=== PATIENT | female | born 1940 | race Caucasian/White ===

== ENCOUNTER → 2016-08-30 | Outpatient (CLI) | payer MEDICARE, BC ==
[~2016-08-30] MED LIST: AMLO5TAB2 PO; ATOR80TA76 PO; BISA-72 PO; CLON0.3T PO; DULO30CA2 PO; FURO40TA5 PO; ISOS30TA6 PO; LOSA100T44 PO; MELA3TAB30; OMEP20CA10 PO; OXYC-426 PO; POTA20TA87 PO; PROC10TA PO; SERT100T12 PO; SOTA80TA PO; WARF2TAB6 PO; WARF3TAB29 PO
[2016-08-30 07:14] LABS: ALBUMIN 3.7 G/DL (3.5-5.0); ANION GAP 9 MEQ/L (5-15); BUN/CREATININE RATIO 14 RATIO (6-26); CALCIUM 8.8 MG/DL (8.4-10.2); CHLORIDE 102 MEQ/L (98-107); CO2 - CARBON DIOXIDE 35 MEQ/L (22-30); CREATININE 0.8 MG/DL (0.7-1.2); GLOMERULAR FILTRATION RATE 70; GLUCOSE 137 MG/DL (65-110); POTASSIUM 3.8 MEQ/L (3.6-5); SODIUM 146 MEQ/L (134-144)
[2016-08-30 08:04] LABS: PHOSPHORUS 3.3 MG/DL (2.5-4.5)
== END ==
LOC: LABNH.PM 00:48
PROVIDERS: ATTEND Internal Medicine Nephrology
DX: N18.3 Chronic kidney disease, stage 3 (moderate) (principal)
CPT/HCPCS: 36415; 80069; P9604

== ENCOUNTER → 2016-09-06 | Outpatient (CLI) | payer MEDICARE, BC ==
[2016-09-06 07:16] LABS: INR 2.22 (0.76-1.04); PROTHROMBIN TIME 24.2 SEC (9.31-12.49)
== END ==
LOC: LABNH.PM 01:53
PROVIDERS: ATTEND Family Medicine
DX: I48.91 Unspecified atrial fibrillation (principal)
CPT/HCPCS: 36415; 85610; P9604

== ENCOUNTER → 2016-10-04 | Outpatient (CLI) | payer MEDICARE, BC ==
[2016-10-04 07:52] LABS: INR 2.13 (0.76-1.04); PROTHROMBIN TIME 23.2 SEC (9.31-12.49)
== END ==
LOC: LABNH.PM 00:10
PROVIDERS: ATTEND Family Medicine
DX: I48.91 Unspecified atrial fibrillation (principal)
CPT/HCPCS: 36415; 85610; P9604

== ENCOUNTER 2017-01-12 12:14 | Inpatient (IN) ==
--- NOTE | 2017-01-12 15:21 | IRU History & Physical Report ---
HPI IRU Date: Chief complaint: I have trouble speaking and I'm weak on my left side HPI: The patient is interviewed and examined in her room on the inpatient rehabilitation unit with her son present. Vijaya is a very pleasant 76-year-old white female who took a fall at her apartment at [facility] on 01/07/2017. She fell on her left knee. A plain radiograph was obtained at that time which was reportedly negative. The next day on 01/08/2017 she was noted to have some slurred speech by the nursing staff there. However she denied any headache or any other localizing neurologic findings. On 01/10/2017 some 2 days later, the nurse passing medications noted that her slurred speech was getting worse. For this reason she was evaluated. Because of the duration of the time since onset of slurred speech (over 48 hours), it was determined not to give her TPA. She was evaluated and treated at [facility]. During that stay she underwent CT angiogram of the neck vessels as well as cerebral vessels. Also had CT of her head. She was noted to have bilateral basal ganglia lacunar infarcts of indeterminate age. No bleed was noted. No large distribution territory infarction was identified either. In addition, neck vessels failed to demonstrate evidence of stenosis and her cerebral vessels were likewise unremarkable. The patient had been on warfarin previously for her atrial fibrillation. Her INR was therapeutic at 2.7 at the time of admission. She did develop expressive dysphagia. In addition the patient describes weakness and some numbness in the left arm and left leg. She is not certain if it is related to the fall or whether it is a true neurologic weakness. Nevertheless, this is new since prior to the hospitalization. The patient does have history of COPD. She does not use any inhalers or bronchodilators. She does have chronic hypoxemia and uses oxygen at 3 L/m by nasal cannula all night. She is diagnosed with obstructive sleep apnea but states that the nasal CPAP was ineffective for her. She does not typically use oxygen during the daytime. However, at [place], her saturations were less than 90 % on room air and therefore she has been on oxygen when she is up and about. Likely she therefore has acute on chronic hypoxemic respiratory failure. Prior to the current event she was modified independent for eating, independent for grooming, minimal assistance for bathing, independent for dressing and modified independent for toileting. At the present time she is moderate assistance for bathing, maximum assistance for dressing and maximum assistance for toileting. She does use a walker at home. Cardiac avila she does have history of atrial fibrillation. It apparently is paroxysmal. She has had a history of cardiac catheterization about 4 years ago demonstrating what she describes as normal arteries but with evidence of some aortic valve stenosis apparently. It was not bad enough to have surgery she states. Does have history of sick sinus syndrome and permanent pacemaker placement. She does have history of colon cancer with resection of a portion of the colon. To her knowledge this is quiescent/in remission at present. I clarified with her that, in the event of a cardiac or respiratory arrest, she does not want any resuscitative efforts be undertaken. Her wishes will be complied with and therefore she will be made a no CODE BLUE. The following medical conditions are noted and require physician monitoring and treatment. 1. New CVA manifested by expressive dysphagia and subjective feeling of left- sided weakness. Workup has been negative for stenosis or any large territory infarction. 2. Acute on chronic hypoxemic respiratory failure with saturations less than 90 % on room air in [place]. 3. Reported congestive heart failure with uncertain ejection fraction. 4. COPD which is symptomatic. Has occasional cough and predominately shortness of breath and expiratory wheezes. 5. Left knee contusion with left leg edema. This is symptomatic and will impact her therapy. She has had negative venous Doppler on the left side. 6. Hypertension which has been under less control recently. The following therapies will be needed: 1. Physical therapy: for transfers and ambulation and stairs. 2. Occupational therapy: for ADL's and transfers. 3. Dietitian: To assist with management of diabetes. She is at risk for hypoglycemia in view of increased energy demands with therapy. 4. Medical management: for the above conditions. 5. 24 hour Rehabilitation Nursing to monitor and address the following: Neurologic changes, blood pressure, oxygen saturations, blood sugars. Review of Systems - Constitutional Constitutional: Present: fatigue, weakness. Absent: fever(s), headache(s) - EENMT Eyes: Absent: blurry vision, change in vision, diplopia - Cardiovascular Cardiovascular: Absent: chest pain, palpitations, syncope (she does complain of vertigo intermittently for some time even prior to the current episode) Rhythm: Present: regular rhythm Vascular: Present: unilateral swelling. Absent: pallor of an extermity - Respiratory Respiratory: Present: dyspnea, dyspnea on exertion, wheezing. Absent: cough, hemoptysis - Gastrointestinal Gastrointestinal: Present: dyspepsia. Absent: abdominal pain, constipation, diarrhea - Musculoskeletal Musculoskeletal: Present: arthralgias, muscle weakness - Neurological Neurological: Present: abnormal gait, abnormal speech, dizziness (has more vertigo than true lightheadedness.), focal weakness, numbness. Absent: abnormal movements, confusion, convulsions PFSH 1. Atrial fibrillation, possibly paroxysmal 2. Hypertension-benign essential 3. Reported history of congestive heart failure without known ejection fraction at present 4. 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 Anemia with hemoglobin around 10uncertain cause 6. Gastroesophageal reflux disease 7. Peripheral neuropathy 8. Depression 9. Sick sinus syndrome with placement of permanent pacemaker 10. Obstructive sleep apnea. Patient states CPAP is not effective for her and she uses 3 L of oxygen every night instead 11. Diabetes mellitus type 2 on oral agents 12. Dyslipidemia 13. History of colon cancer with resection and chemotherapy, apparently in remission Surgical History: 1. Placement of permanent pacemaker. 2. Cholecystectomy. 3. Partial colectomy for colon cancer. 4. Tonsillectomy and adenoidectomy. 5. Left heart catheterization apparently demonstrating aortic valve disease but reportedly negative coronary disease. 6. Central line placementapparently [place] Family History: Father of multiple medical problems which she is unable to enumerate. Mother of cancer which was "all over." - Social History Smoking status: Former smoker (started smoking at age 9. Stopped smoking age 38. 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) Does patient use chewing tobacco?: No Current residence: Assisted Living Medications Home Medications Medication Instructions Recorded Confirmed Type Atorvastatin Calcium 0.5 tab PO DAILY #0 09/01/14 History Bisacodyl [Dulcolax] 1 tab PO DAILY PRN #0 tab 09/01/14 History Omeprazole 1 tab PO DAILY #0 09/01/14 History Furosemide 1 tab PO DAILY #0 12/01/14 History Isosorbide Mononitrate [Isosorbide 1 tab PO DAILY #0 12/01/14 History Mononitrate ER] Losartan Potassium 1 tab PO DAILY #0 12/01/14 History Oxycodone HCl [Oxycontin] 1 tab PO BID #0 12/01/14 History Potassium Chloride 20 meq PO TID #0 tab 12/01/14 History Prochlorperazine Maleate 1 tab PO QID #0 12/01/14 History Sertraline HCl 1 tab PO DAILY #0 12/01/14 History Duloxetine [Cymbalta] 1 cap PO DAILY #0 cap 03/22/15 History Melatonin #0 03/22/15 History Sotalol HCl [Sotalol] 0.5 tab PO TID #0 tab 03/22/15 History Warfarin Sodium 2 mg PO 1700 #0 tab 03/22/15 History Warfarin Sodium [Coumadin] 3 mg PO 1700 #0 tab 03/22/15 History cloNIDine HCl [Clonidine HCl] 1 tab PO BID #0 tab 03/22/15 History Allergies Allergy/AdvReac Type Severity Reaction Status Date / Time codeine Allergy Unknown ITCH Verified 03/22/15 18:50 NSAIDS (Non-Steroidal Allergy Unknown Verified 03/22/15 18:50 Anti-Inflamma hydrocodone bit Allergy Unknown ITCH Uncoded 03/22/15 18:50 propoxyphene napsylate Allergy Unknown RASH Uncoded 03/22/15 18:50 zolpidem tartrate Allergy Unknown MENTAL Uncoded 03/22/15 18:50 STATUS CHANGES Results IRU - Labs Labs: Reviewed outside records including laboratory with A1c 8.1, CT of the head as well as CT angiogram of neck and cerebral vessels. Exam - Constitutional Present: no acute distress, obese, cooperative - Routine HEENT Exam Head: Present: normocephalic, atraumatic Eye: Present: EOMI, PERRL ENT: Present: mucous membranes moist - Routine Neck Exam Present: supple, full ROM - Routine Respiratory Exam Present: dyspnea, decreased breath sounds, wheezes (bilateral scattered expiratory wheezes). Absent: accessory muscle use, rales, crackles - Routine Cardiovascular Exam Present: RRR (reportedly has paroxysmal atrial fibrillation but currently rhythm sounds regular.), S1, S2, murmur (grade 2/6 systolic murmur second right interspace.) - Routine Abdominal Exam Present: soft, normoactive bowel sounds, non distended. Absent: rebound, guarding - Routine Extremities Exam Present: edema (left leg edematous and ecchymotic.) - Routine Skin Exam Present: intact, dry - Routine Neurological Exam Present: alert, oriented X3, CN II-XII intact, motor deficit (decreased inspector strength left hand compared to right. Decreased strength on flexion and extension left arm compared to right). Absent: altered mental status She does have intermittent episodes of expressive dysphagia. She would does have word finding problems. Speech does appear to be somewhat slurred. However she seems to be well oriented. - Routine Psychiatric Exam Present: normal affect, normal thought process, cooperative IRU A/P (1) CVA (cerebral vascular accident) Qualifiers: CVA mechanism: thrombosis Precerebral and cerebral artery: other cerebral artery Qualified Code(s): I63.39 - Cerebral infarction due to thrombosis of other cerebral artery Current visit: Yes Status: Acute Has expressive dysphasia and at least subjectively weakness on the left side of her body. Speech therapy will be involved to ensure safety with swallowing and improve speech and cognition. Physical therapy will be involved for transfers and ambulation. Occupational therapy will be involved for fine motor movement, dressing, grooming, toileting etc. She is on warfarin. (2) Episodic atrial fibrillation Current visit: Yes Status: Chronic Patient's INR has been elevated in [place]. We will hold warfarin until INR is drifting down to less than 3. Pharmacy consultation for management. (3) COPD (chronic obstructive pulmonary disease) with emphysema Qualifiers: Emphysema type: unspecified Qualified Code(s): J43.9 - Emphysema, unspecified Current visit: Yes Status: Chronic She was told she has COPD. She does have expiratory wheezes. Has a remote history of tobacco use but not since age 38. She is dyspneic with activity which will impact her therapy. (4) Benign essential hypertension Current visit: Yes Status: Chronic Blood pressure has been elevated recently. We will adjust medications as needed and consult hospitalist for management. (5) Acute respiratory failure with hypoxemia Current visit: Yes Status: Acute Appears to have chronic hypoxemia and use of oxygen at night. Does not use oxygen during the daytime. However she has manifested acute hypoxemia with saturations less than 90% on room air while in [place]. We will continue to monitor and supply additional oxygen if needed. (6) Diabetes mellitus type 2 in obese Current visit: Yes Status: Chronic Most recent A1c was 8.1 in [place]. She is not on insulin. (7) Contusion of knee, left Qualifiers: Encounter type: subsequent encounter Qualified Code(s): S80.02XD - Contusion of left knee, subsequent encounter Current visit: Yes Status: Acute Patient fell on 01/07/2017 resulting in contusion of left knee. Has edema on the left side. Plain radiograph was negative. DVT Prophylaxis: Coumadin Resuscitation Status: Do Not Resuscitate - Course Hospital Course: Camilo Rebolledo MD: - Interventions to Obtain Goals Goals Progress/Modifications: Our goal be to return her to her previous level of functioning which was essentially modified independent for most activities. She will require physical therapy, occupational therapy and speech therapy, the latter of which will be needed to improve her communication ability, swallowing safety and cognition.
--- NOTE | 2017-01-12 15:39 | IRU 24Hr Post Admit Eval ---
24 Hr Post Admission Physical - Relevant Changes Relevant Changes: No Reviewed: I have reviewed the patient's information and concur with the finding and results of the pre-admission screen. Certification: I certify the patient for rehabilitation. - Patient Condition (1) CVA (cerebral vascular accident) Status: Acute Qualifiers: CVA mechanism: thrombosis Precerebral and cerebral artery: other cerebral artery Qualified Code(s): I63.39 - Cerebral infarction due to thrombosis of other cerebral artery Code(s): I63.9 - Cerebral infarction, unspecified Classification: Present on IRF Admission, IRF Tx That Should Address Diagnosis, Diagnosis Requiring Medical Follow Up (2) Episodic atrial fibrillation Status: Chronic Code(s): I48.0 - Paroxysmal atrial fibrillation Classification: Present on IRF Admission, Diagnosis Requiring Medical Follow Up (3) COPD (chronic obstructive pulmonary disease) with emphysema Status: Chronic Qualifiers: Emphysema type: unspecified Qualified Code(s): J43.9 - Emphysema, unspecified Code(s): J43.9 - Emphysema, unspecified Classification: Present on IRF Admission, Other Contributing Factor (4) Benign essential hypertension Status: Chronic Code(s): I10 - Essential (primary) hypertension Classification: Present on IRF Admission, Diagnosis Requiring Medical Follow Up , Other Contributing Factor (5) Acute respiratory failure with hypoxemia Status: Acute Code(s): J96.01 - Acute respiratory failure with hypoxia Classification: Present on IRF Admission, Diagnosis Requiring Medical Follow Up (6) Diabetes mellitus type 2 in obese Status: Chronic Code(s): E11.69 - Type 2 diabetes mellitus with other specified complication; E66.9 - Obesity, unspecified Classification: Present on IRF Admission, Diagnosis Requiring Medical Follow Up (7) Contusion of knee, left Status: Acute Qualifiers: Encounter type: subsequent encounter Qualified Code(s): S80.02XD - Contusion of left knee, subsequent encounter Code(s): S80.02XA - Contusion of left knee, initial encounter Classification: Present on IRF Admission, IRF Tx That Should Address Diagnosis, Other Contributing Factor - Prior Functional Status Lives With: Spouse Residence Type: Assisted Living Assitive Devices: Front Wheeled Walker Prior Functional Status: Depend. at home or school - Current Functional Status Failed Alternative Therapy: Arrived from Acute Care Patient Requirements: The patient requires oversight by rehabilitation physician to manage their rehabilitation treatment plan and multidisciplinary approach to care that can only be provided in an IRF and requires a multidisciplinary approach to care, provided by professional PTs, OTs, STs, dieticians, RTs, rehabilitation nurses and is not available in lesser levels of care. Limitiations Req: Mobility Impairment, ADL Impairment, Respiratory Impairment Speech Therapy Minutes: 30 Physical Therapy Minutes: 90 Occupational Therapy Minutes: 90 Therapy: The patient is to receive therapy at least [address] Treatment Plan: Articulation Therapy, Apraxia Therapy ST Treatment Plan Frequency: Three Times Per Week - Complications/Comorbidities Barriers to Discharge: Weakness, Balance, Medical Limitation - Plan to Avoid Complications Plan to Avoid Complications: The patient cannot receive this care in a lesser intensive setting such as Penitentiary or Outpatient Therapy due to the patient requiring the following : Recent CVA requiring close nursing monitoring for recurrence of new neurologic symptoms, oxygen monitoring in view of recent acute respiratory failure, medical management of elevated INR, medical management of COPD.
--- NOTE | 2017-01-12 15:42 | IRU Plan of Care ---
[facility] Overall Plan of Care - Date Date: 01/12/17 - Patient Impairments (1) CVA (cerebral vascular accident) Qualifiers: CVA mechanism: thrombosis Precerebral and cerebral artery: other cerebral artery Qualified Code(s): I63.39 - Cerebral infarction due to thrombosis of other cerebral artery Code(s): I63.9 - Cerebral infarction, unspecified Status: Acute Classification: Present on IRF Admission, IRF Tx That Should Address Diagnosis, Diagnosis Requiring Medical Follow Up (2) Episodic atrial fibrillation Code(s): I48.0 - Paroxysmal atrial fibrillation Status: Chronic Classification: Present on IRF Admission, Diagnosis Requiring Medical Follow Up (3) COPD (chronic obstructive pulmonary disease) with emphysema Qualifiers: Emphysema type: unspecified Qualified Code(s): J43.9 - Emphysema, unspecified Code(s): J43.9 - Emphysema, unspecified Status: Chronic Classification: Present on IRF Admission, Other Contributing Factor (4) Benign essential hypertension Code(s): I10 - Essential (primary) hypertension Status: Chronic Classification: Present on IRF Admission, Diagnosis Requiring Medical Follow Up , Other Contributing Factor (5) Acute respiratory failure with hypoxemia Code(s): J96.01 - Acute respiratory failure with hypoxia Status: Acute Classification: Present on IRF Admission, Diagnosis Requiring Medical Follow Up (6) Diabetes mellitus type 2 in obese Code(s): E11.69 - Type 2 diabetes mellitus with other specified complication; E66.9 - Obesity, unspecified Status: Chronic Classification: Present on IRF Admission, Diagnosis Requiring Medical Follow Up (7) Contusion of knee, left Qualifiers: Encounter type: subsequent encounter Qualified Code(s): S80.02XD - Contusion of left knee, subsequent encounter Code(s): S80.02XA - Contusion of left knee, initial encounter Status: Acute Classification: Present on IRF Admission, IRF Tx That Should Address Diagnosis, Other Contributing Factor - Relevant Changes Relevant Changes: No Reviewed: I have reviewed the patient's information and concur with the finding and results of the pre-admission screen. Certification: I certify the patient for rehabilitation. - Medical Prognosis Medical Prognosis: Good - Anticipated Interventions Anticipated Interventions: The patient requires inpatient IRF care for PT, OT, and/or ST for residuals remaining from new CVA, acute hypoxemic respiratory failure, COPD resulting in muscular weakness and strength deficits. - Current Functional Status Failed Alternative Therapy: Arrived from Acute Care Patient Requires: The patient requires oversight by rehabilitation physician to manage their rehabilitation treatment plan and multidisciplinary approach to care that can only be provided in an IRF and requires a multidisciplinary approach to care, provided by professional PTs, OTs, STs, dieticians, RTs, rehabilitation nurses and is not available in lesser levels of care. Speech-Language Pathology Minutes: 30 Physical Therapy Minutes: 90 Occupational Therapy Minutes: 90 Therapy: The patient is to receive therapy at least [address] Treatment Plan: Articulation Therapy, Apraxia Therapy ST Treatment Plan Frequency: Three Times Per Week - Anticipated LOS/Outcomes Anticipated Functional Outcome: Patient will be able to return to her assisted living environment with modified independent functioning including grooming, toileting, bathing. She will be able to ambulate with a walker with independent functioning. Anticipated Length of Stay: 7 Anticipated DC Destination: Other (assisted living) Home Safety Plan: The patient will be provided with the development of a Home Safety Plan for return to a home or home-like environment and and to ensure safety post discharge. - Plan to Avoid Complications Barriers to Attaining Goals: Weakness, Endurance, Medical Limitation Plan to Avoid Complications: The patient cannot receive this care in a lesser intensive setting such as Longterm or Outpatient Therapy due to the patient requiring the following : Need for 24 rehabilitation nursing monitoring of neurologic status, medical management of hypertension, COPD, adjustment of Coumadin in view of elevated INR at present as well as monitoring oxygen saturations. .
[2017-01-12] MEDS ORDERED: ONDANSETRON 4 MG TABLET PO PRN (16:06)
[2017-01-12] MEDS ORDERED: MECLIZINE 12.5 MG TABLET PO PRN (16:06)
[2017-01-12] MEDS ORDERED: WARFARIN 6 MG TABLET PO SCH (16:15)
[2017-01-12] MEDS ORDERED: WARFARIN 7.5 MG TABLET PO SCH (16:30)
[2017-01-12 16:38] VITALS: BMI 37.5
[2017-01-12] MEDS: ISOSORBIDE MONONITRATE ER 30 MG TABLET PO SCH (18:03)
[2017-01-12] MEDS: TRIHEXYPHENIDYL 2 MG TABLET PO SCH (21:00)
[2017-01-12] MEDS: GUAIFENESIN LA 600 MG TABLET PO SCH (21:00)
[2017-01-12] MEDS: SOTALOL 80 MG TABLET PO SCH (21:03)
[2017-01-12] MEDS: PRIMIDONE 50 MG TABLET PO SCH (21:06)
[2017-01-12] MEDS: MELATONIN 1 MG TABLET PO SCH (21:38)
[2017-01-12] MEDS: MIRTAZAPINE 15 MG TABLET PO SCH (21:39)
[2017-01-12] MEDS: FAMOTIDINE 20 MG TABLET PO SCH (21:39)
[2017-01-12] MEDS: ATORVASTATIN 20 MG TABLET PO SCH (21:40)
[2017-01-12] MEDS: TRAZODONE 50 MG TABLET PO SCH (21:40)
[2017-01-12] MEDS: ACETAMINOPHEN 325 MG TABLET PO PRN (22:06)
[2017-01-13] MEDS: ISOSORBIDE MONONITRATE ER 30 MG TABLET PO SCH ×2 (06:11→17:23)
[2017-01-13] MEDS: SOTALOL 80 MG TABLET PO SCH ×3 (08:35→20:27)
[2017-01-13] MEDS: LOSARTAN 100 MG TABLET PO SCH (08:36)
[2017-01-13] MEDS: PRIMIDONE 50 MG TABLET PO SCH ×3 (08:37→20:26)
[2017-01-13] MEDS: FUROSEMIDE 80 MG TABLET PO SCH (08:39)
--- NOTE | 2017-01-13 09:37 | Consult Note ---
<Georgette Ayala - Last Filed: 01/13/17 16:30> Consult Information - Data of Consult Patient: new to practice Consult date: 01/13/17 Requesting Physician: Camilo Rebolledo MD Primary Care Provider: Laney Guillory MD Family Provider: Laney Guillory MD - Consult Narrative Reason for consult: Ongoing medical management of chronic health problems History of present illness: Vijaya is a 76-year-old white female admitted to IRU following a CVA. She fell on her left knee at her apartment at [facility] on . She had an x-ray at that time which was reported negative. The following day , she was noted to have some slurred speech by the nursing staff. On 01/10/17, the nurses felt her speech was getting worse so she was taken to [facility] for evaluation. During her stay she had CT head, CTA of the neck and cerebral vessels. She was found to have bilateral basal ganglia lacunar infarcts of indeterminate age. No bleed. Otherwise, studies were negative. Patient is on warfarin for paroxysmal atrial fibrillation. Her INR was therapeutic at 2.7 at the time of admission to [facility]. She developed some expressive dysphasia and describes weakness and numbness in the left arm and left leg. In addition to paroxysmal atrial fibrillation, patient does have a history of sick sinus syndrome and has a permanent pacemaker. She has a history of COPD but does not use any inhalers other than PRN albuterol. States it is not unusual for her to have wheezing. She has chronic hypoxemia and uses oxygen at 3 L by nasal cannula at night. She's had diagnosis of obstructive sleep apnea but felt CPAP was ineffective. Although she usually does not use oxygen during the day, while at [facility], her saturations were less than 90% on room air therefore she was on oxygen. Her only complaint at this time as the left knee pain and swelling. Although, she does report that it is improving. Pain is improved with Tylenol. PFSH Recent CVA with expressive dysphasia and subjective feeling of left-sided weakness. Acute on chronic hypoxemic respiratory failure Paroxysmal atrial fibrillation-anticoagulant therapy Ascending aortic aneurysm-stable Final stenosis CHF COPD-previous smoker Essential tremor Recent left knee contusion with left leg edema Hypertension Chronic anemia, iron deficiency GERD Diabetes mellitus Type II Sick sinus syndrome with placement of permanent pacemaker Obstructive sleep apnea-CPAP not effective per patient. Uses 3 L of oxygen at night Hyperlipidemia History of colon cancer with resection and chemotherapy, no evidence of recurrence Previous narcotic drug use Surgical History: 1. Placement of permanent pacemaker-2006 (Dr. Marco Antonio Hidalgo) . 2. Cholecystectomy. 3. Partial colectomy for adenocarcinoma of ascending colon-2011. 4. Tonsillectomy and adenoidectomy. 5. Left heart catheterization apparently demonstrating aortic valve disease but reportedly negative coronary disease. 6. Central line placementapparently Port-A-Cath. 7. Hysterectomy ( ovaries not removed) and appendectomy at age 36. 8. Cervical fusion at age 43. 9. Posterior repair with enterocele repair 1989. 10. Cataract surgery and lens implants bilaterally-2005. 11. Excision of suspicious calcification on right breast 1999 (Dr. Townsend) Family History: Father - in his 70s of heart problems Mother - age 84 of adenocarcinoma which had metastasized, CABG and carotid artery surgery, developed diabetes after age 80. Sister-cardiac arrhythmia-history of ablation, hypertension Maternal grandfather- at age 88 of heart attack and diabetes in later years. Maternal grandmother of ruptured aortic aneurysm in her early 70s. 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 Laney Guillory Driver Medic-Dr. Jesus Willson Oncologist-Dr. Chapman Neurologist-Dr. Richards Video Poker Floorman-Dr Frye(?) - retired - last saw him 5 months ago. States she needs to establish with new junior programmer. Review of Systems Comprehensive ROS: completed and no additional positive findings except those as stated - Constitutional Constitutional: Present: headache(s) (bilateral orthodoxy area. (Not unusual for patient.)) - Cardiovascular Vascular: Present: unilateral swelling (left knee and lower leg) - Respiratory Respiratory: Present: wheezing - Musculoskeletal Musculoskeletal: Present: joint swelling (left knee pain and swelling from recent fall.) - Integumentary/Breasts Integumentary: Present: other (bruising to left knee and lower extremity) - Neurological Neurological: Present: abnormal speech, weakness Medications Home Medications Medication Instructions Recorded Confirmed Type Bisacodyl [Dulcolax] 1 tab PO DAILY #0 tab 09/01/14 01/12/17 History Furosemide 1 tab PO DAILY #0 12/01/14 01/12/17 History Isosorbide Mononitrate [Isosorbide 0.5 tab PO BID #0 12/01/14 01/12/17 History Mononitrate ER] Losartan Potassium 1 tab PO DAILY #0 12/01/14 01/12/17 History Potassium Chloride 20 meq PO QID #0 tab 12/01/14 01/12/17 History Sertraline HCl 1 tab PO DAILY #0 12/01/14 01/12/17 History Melatonin 6 mg PO DAILY #0 03/22/15 01/12/17 History Sotalol HCl [Sotalol] 0.5 tab PO TID #0 tab 03/22/15 01/12/17 History Warfarin Sodium 6 mg PO Q2D #0 tab 03/22/15 01/12/17 History Warfarin Sodium [Coumadin] 3 mg PO Q2D #0 tab 03/22/15 01/12/17 History cloNIDine HCl [Clonidine HCl] 1 tab PO TID #0 tab 03/22/15 01/12/17 History Acetaminophen 650 mg PO Q4HPRN PRN 01/12/17 01/12/17 History Acetaminophen 650 mg PO TID 01/12/17 01/12/17 History Albuterol Neb (0.083%) [Proventil 2.5 mg AEROSOL Q2HPRN PRN 01/12/17 01/12/17 History Neb (0.083%)] Albuterol Sulfate [Proair Hfa] 2 puff INH Q4H PRN 01/12/17 01/12/17 History Atorvastatin Calcium 20 mg PO DAILY 01/12/17 01/12/17 History Benzonatate 200 mg PO Q6HPRN PRN 01/12/17 01/12/17 History Famotidine [Pepcid] 20 mg PO DAILY 01/12/17 01/12/17 History Ferrous Sulfate 325 mg PO DAILY 01/12/17 01/12/17 History Fexofenadine HCl 180 mg PO DAILY 01/12/17 01/12/17 History Furosemide [Lasix] 80 mg PO DAILY 01/12/17 01/12/17 History Gabapentin [Neurontin] 200 mg PO DAILY 01/12/17 01/12/17 History Guaifenesin LA [Mucinex LA] 600 mg PO [id number] PRN 01/12/17 01/12/17 History Meclizine [Antivert] 1 tab PO Q6HPRN PRN 01/12/17 01/12/17 History Metoprolol Succinate (Xl) [Toprol 50 mg PO DAILY 01/12/17 01/12/17 History Xl] Miconazole Nitrate [Miconazorb AF] 1 applic TP BID PRN 01/12/17 01/12/17 History Mirtazapine 7.5 mg PO HS 01/12/17 01/12/17 History NIFEdipine [Nifedipine ER] 90 mg PO DAILY 01/12/17 01/12/17 History Ondansetron Tab [Zofran Po] 4 mg PO DAILY 01/12/17 01/12/17 History Ondansetron Tab [Zofran Po] 4 mg PO Q4HR PRN 01/12/17 01/12/17 History Polyethylene Glycol 3350 [Miralax] 17 gm PO DAILY 01/12/17 01/12/17 History Primidone [Mysoline] 25 mg PO TID 01/12/17 01/12/17 History Trazodone [Desyrel] 50 mg PO HS 01/12/17 01/12/17 History Trihexyphenidyl [Artane] 0.5 tab PO BID 01/12/17 01/12/17 History Allergies Allergy/AdvReac Type Severity Reaction Status Date / Time codeine Allergy Unknown ITCH Verified 01/12/17 19:47 NSAIDS (Non-Steroidal Allergy Unknown Verified 01/12/17 19:47 Anti-Inflamma hydrocodone [From Lortab] AdvReac Intermediate Blister Verified 01/12/17 19:47 acetaminophen AdvReac Mild Itching Verified 01/12/17 19:47 [From Darvocet-N] propoxyphene AdvReac Mild Itching Verified 01/12/17 19:47 [From Darvocet-N] hydrocodone bit Allergy Unknown ITCH Uncoded 03/22/15 18:50 propoxyphene napsylate Allergy Unknown RASH Uncoded 03/22/15 18:50 zolpidem tartrate Allergy Unknown MENTAL Uncoded 03/22/15 18:50 STATUS CHANGES Exam Vital Signs: Temperature 98.1 F 01/13/17 08:22 Pulse Rate 89 01/13/17 08:35 Respiratory Rate 24 01/13/17 08:22 Blood Pressure 163/89 H 01/13/17 08:22 Pulse Oximetry 92 01/13/17 08:22 Oxygen Delivery Method Room Air Oxygen Flow Rate 3 Height: 1.68 m Weight: 105.6 kg Body Mass Index: 37.5 - Constitutional Present: no acute distress, well nourished, well developed - Routine HEENT Exam Head: Present: normocephalic, atraumatic Eye: Present: EOMI, PERRL ENT: Present: mucous membranes moist, oropharynx clear - Routine Neck Exam Present: supple, full ROM - Routine Respiratory Exam Present: CTA bilaterally. Absent: wheezes - Routine Cardiovascular Exam Present: RRR, S1, S2, murmur (grade 1-2) - Routine Abdominal Exam Present: soft, normoactive bowel sounds, non distended. Absent: tenderness - Routine Extremities Exam Present: edema (moderate swelling of the left knee and lower leg), no edema (to right lower extremity), normal capillary refill. Absent: non tender ( tenderness to the left knee and lower leg), full ROM (decreased range of motion left leg and knee due to pain) - Routine Skin Exam Present: dry, warm, ecchymosis (to left knee and lower leg) - Routine Neurological Exam Present: alert, oriented X3, CN II-XII intact, moving all extremities. Absent: pronator drift, altered mental status, normal speech Carbide Tool Maker strength on the left slightly weaker than right. Unable to accurately test strength to left leg due to pain. Strength equal bilateral upper extremities. She has a slight facial droop on the right noted especially to the mouth. She states she has always had this. - Detailed Neurological Exam Speech: Present: slurred - Routine Psychiatric Exam Present: normal affect, normal thought process, cooperative Results - Labs CBC & Chem 7: 01/13/17 04:44 01/13/17 04:44 - Imaging and Cardiology CT scan - head Additional comments: Studies performed at [facility]: 01/10-01/11/17 CT head, CTA of the neck and cerebral vessels. She was found to have bilateral basal ganglia lacunar infarcts of indeterminate age. No bleed. Otherwise, studies were negative. Left lower extremity venous Doppler-negative Chest [id number], otherwise negative. A1C 8.2 TSH - nl Echo - left ventricular systolic function is 55-60% 1. Preserved left ventricular size and systolic function. 2. Aortic root dilated. 3. Moderate mitral insufficiency. 4. Moderate mitral regurgitation. 5. Mild pulmonary hypertension. Assessment and Plan (1) CVA (cerebral vascular accident) Current visit: Yes Status: Acute Assessment and Plan: Impression: Recent CVA with expressive dysphasia and subjective feeling of left-sided weakness. Acute on chronic hypoxemic respiratory failure CHF Paroxysmal atrial fibrillation-anticoagulant therapyF COPD Ascending aortic aneurysm-stable Spinal stenosis Essential tremor Recent left knee contusion with left leg edema Hypertension Chronic anemia, iron deficiency GERD Diabetes mellitus Type II Sick sinus syndrome with placement of permanent pacemaker Obstructive sleep apnea-CPAP not effective per patient. Uses 3 L of oxygen at night Hyperlipidemia History of colon cancer with resection and chemotherapy, no evidence of recurrence History of narcotic drug use Plan: Agree with IRU admission for strengthening, ambulation and ADLs. As well as monitoring of neurologic changes, blood pressure, oxygen saturations, and blood sugars. Pharmacy will monitor her warfarin/INR. Expect the left knee should continue to improve with time. Monitor O2 sats, oxygen as needed to keep sats greater than 90%. She sleeps with 3 L. Duoneb treatments when necessary. Monitor blood pressures. Cardiac medications include clonidine, nifedipine, losartan, furosemide and potassium, sotalol, metoprolol, Imdur, and Lipitor. Confirmed patient's home medications with her snf [facility]. Recent A1c was 8.2, blood sugars ranging upper 100s to over 200 since admission. Start sliding scale insulin protocol and initiate metformin 500 mg daily. Monitor kidney function with initiation of metformin. 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 Poon, or have her establish as an OP after dismissal. Hospitalist team will continue to manage patient throughout her stay. Upon dismissal, patient's care will return to her PCP, Dr. Guillory. Hospital Course Summary Disclaimer: The visit summary below is not to be considered part of the above Progress Note. Hospital Course: 01/13/17 - Hospitalist Consult Agree with IRU admission for strengthening, ambulation and ADLs. As well as monitoring of neurologic changes, blood pressure, oxygen saturations, and blood sugars. Pharmacy will monitor her warfarin/INR. Expect the left knee should continue to improve with time. Monitor O2 sats, oxygen as needed to keep sats greater than 90%. She sleeps with 3 L. Duoneb treatments when necessary. Monitor blood pressures. Cardiac medications include clonidine, nifedipine, losartan, furosemide and potassium, sotalol, metoprolol, Imdur, and Lipitor. Confirmed patient's home medications with her snf [facility]. Recent A1c was 8.2, blood sugars ranging upper 100s to over 200 since admission. Start sliding scale insulin protocol and initiate metformin 500 mg daily. Monitor kidney function with initiation of metformin. 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 Poon, or have her establish as an OP after dismissal. Hospitalist team will continue to manage patient throughout her stay. Upon dismissal, patient's care will return to her PCP, Dr. Guillory. Sepsis Assessment - Evaluation Sepsis screening result: No Definite Risk <RoscoeJennifer L - Last Filed: 01/13/17 20:10> Consult Information - Data of Consult Requesting Physician: Camilo Rebolledo MD Primary Care Provider: Laney Guillory MD Family Provider: Laney Guillory MD [facility] Patient Stated Medical History Cerebrovascular Accident Yes: 2016 Syncope Yes Cataracts Yes: cataract sx Dental Problems Yes: wears dentures Cardiac Arrhythmia Yes Hypertension Yes Rheumatic Fever Yes Asthma Yes Bronchitis Yes Chronic Obstructive Pulmonary Yes Disease (COPD) Sleep Apnea Yes Diabetes Mellitus Type 2 Yes Constipation Yes Gastroesophageal Reflux Yes Disease Hiatal Hernia Yes Other GI Yes: Colon CA Hx Incontinence Yes Shingles Yes: 2016 Chemotherapy Yes Post Menopausal Yes Exam Vital Signs: Temperature 98.0 F 01/13/17 16:33 Pulse Rate 86 01/13/17 17:17 Respiratory Rate 24 01/13/17 16:33 Blood Pressure 136/78 01/13/17 17:17 Pulse Oximetry 93 01/13/17 16:33 Oxygen Delivery Method Room Air Oxygen Flow Rate 3 Height: 1.68 m Weight: 105.6 kg Results - Labs CBC & Chem 7: 01/13/17 04:44 01/13/17 04:44 Assessment and Plan (1) CVA (cerebral vascular accident) Current visit: Yes Status: Acute Assessment and Plan: 01/13/2017-I reviewed this chart, the patient history, and the AUTOMOTIVE PAINTER HELPER's/PA's documented findings as above. We discussed and formulated the assessment and plan as above with the additions below. I've seen and examined the patient independently.-Roscoe The patient was seen in her room this evening accompanied by her and daughter. She states she is doing better than this morning. She states that this morning she had nausea but that has resolved now. She states she has some slurred speech and left facial droop that has been present since her stroke. She states she choked on some fish and cooked carrots this evening. She states her swallow was evaluated by speech therapist while she was at [facility] and she was told her swallowing was okay. She is on a regular consistency diet. She states she choked a couple of times while eating at [facility] also. She states she has left knee and leg pain after a fall approximately one week ago. She has extensive bruising and swelling from the knee down but she and her daughter both state that it looks better. Patient denies any other pain such as chest pain, headache or abdominal pain. She denies any difficulties breathing. The patient states that she did see Dr. Willson for possible kidney disease, but per her report he told her her kidneys were fine. On exam she is alert and oriented 3 and in no acute distress. HEENT reveals sclerae to be anicteric, oropharynx is moist. Neck is supple. Chest is clear to auscultation. Cardiovascular reveals a regular rate and rhythm. Abdomen is soft and nontender with mild distention. Bowel sounds are normoactive. Right leg is without edema. Left leg reveals trace to +1 edema and bruising from the knee down. The patient states she had x-rays that ruled out fracture and venous Dopplers that ruled out DVT of the left leg. Skin is warm and dry and without rashes Agree with impression and plan above. We'll DC metformin however because the patient states that this caused hypoglycemia in the past. Instead, we'll monitor Accu-Cheks and give when necessary insulin. If she is having frequent hyperglycemia, we may need to start routine medication. Regarding dysphagia with choking today we'll start a pured diet with nectar thick liquids and consult speech therapy to see her tomorrow. Currently her lungs are clear and she denies shortness of breath and is not having a cough. Monitor for aspiration pneumonitis/pneumonia. Recheck basic metabolic profile tomorrow. Hospital Course Summary Disclaimer: The visit summary below is not to be considered part of the above Progress Note.
[2017-01-13] MEDS: FEXOFENADINE 180 MG TABLET PO SCH (09:49)
[2017-01-13] MEDS: TRIHEXYPHENIDYL 2 MG TABLET PO SCH ×2 (09:49→20:29)
[2017-01-13] MEDS: ACETAMINOPHEN 325 MG TABLET PO PRN (09:49)
[2017-01-13] MEDS: FERROUS SULFATE 324 MG TABLET PO SCH (09:50)
[2017-01-13] MEDS: SERTRALINE 100 MG TABLET PO SCH (09:51)
[2017-01-13] MEDS: GABAPENTIN 100 MG CAPSULE PO SCH (09:51)
[2017-01-13] MEDS: POLYETHYL GLYCOL 3350 17gm PACKET PO SCH (09:51)
[2017-01-13] MEDS: Bisacodyl EC TAB 5 MG TABLET PO SCH (09:51)
[2017-01-13] MEDS: GUAIFENESIN LA 600 MG TABLET PO SCH ×2 (09:52→20:26)
[2017-01-13] MEDS ORDERED: ALBUTEROL/IPRATROPIUM 2.5mg-0.5mg/3ml NEB AEROSOL PRN (11:05)
[2017-01-13] MEDS: MICONAZOLE 2% POWDER 45gm TP PRN (11:09)
[2017-01-13] MEDS ORDERED: METFORMIN 500 MG TABLET PO SCH (12:54)
--- NOTE | 2017-01-13 13:08 | Pharmacy Consult ---
Pharmacy Consult-Warfarin - Laboratory Information 01/13/17 04:44 INR 3.14 H ALDO is a 76yo F admitted to IRU for PT/OT to ADL's secondary to recent CVA. Comorbidities include COPD, HTN, CHF Reported had been on home warfarin of 3mg alternating with 6mg dose, but date of last taken is unkown. Warfarin was held on admission. Will HOLD today's dose as well with the INR = 3.14 Target INR range = 2-3 Recheck INR in am. thank you
[2017-01-13] MEDS: INSULIN ASPART 100unit/ml INJECTION SQ PRN ×2 (13:32→21:34)
[2017-01-13] MEDS: FUROSEMIDE 40 MG TABLET PO SCH (16:31)
[2017-01-13] MEDS ORDERED: GLUCOSE ORAL GEL 40% 37.5gm PO PRN (20:02)
[2017-01-13] MEDS ORDERED: DEXTROSE 50% SYRINGE 50ml (1 AMP) IVP PRN (20:02)
[2017-01-13] MEDS: FAMOTIDINE 20 MG TABLET PO SCH (21:22)
[2017-01-13] MEDS: MELATONIN 1 MG TABLET PO SCH (21:22)
[2017-01-13] MEDS: TRAZODONE 50 MG TABLET PO SCH (21:22)
[2017-01-13] MEDS: MIRTAZAPINE 15 MG TABLET PO SCH (21:23)
[2017-01-13] MEDS: ATORVASTATIN 20 MG TABLET PO SCH (21:23)
[2017-01-14] MEDS: INSULIN ASPART 100unit/ml INJECTION SQ PRN ×4 (06:08→21:05)
[2017-01-14] MEDS: ISOSORBIDE MONONITRATE ER 30 MG TABLET PO SCH ×2 (06:08→17:47)
--- NOTE | 2017-01-14 06:44 | Pharmacy Consult ---
Pharmacy Consult-Warfarin - Laboratory Information 01/13/17 01/14/17 04:44 04:40 INR 3.14 H 2.19 H ALDO is a 76yo F admitted to IRU for PT/OT to ADL's secondary to recent CVA. Comorbidities include COPD, HTN, CHF Date INR Dose 01/13 3.14 No Dose Given 01/14 2.19 Plan 3 mg The pharmacy will continue to monitor the INR's and adjust the Warfarin as needed. Thanks for the Protocol, Jordy Cedeno RP
[2017-01-14] MEDS: PROMETHAZINE 25 MG TABLET PO PRN (08:51)
[2017-01-14] MEDS: FERROUS SULFATE 324 MG TABLET PO SCH (08:53)
[2017-01-14] MEDS: SOTALOL 80 MG TABLET PO SCH ×3 (08:54→20:23)
[2017-01-14] MEDS: TRIHEXYPHENIDYL 2 MG TABLET PO SCH ×2 (08:54→20:24)
[2017-01-14] MEDS: FEXOFENADINE 180 MG TABLET PO SCH (08:54)
[2017-01-14] MEDS: FUROSEMIDE 80 MG TABLET PO SCH (08:56)
[2017-01-14] MEDS: Bisacodyl EC TAB 5 MG TABLET PO SCH (08:56)
[2017-01-14] MEDS: PRIMIDONE 50 MG TABLET PO SCH ×3 (08:56→20:31)
[2017-01-14] MEDS: LOSARTAN 100 MG TABLET PO SCH (08:56)
[2017-01-14] MEDS: GUAIFENESIN LA 600 MG TABLET PO SCH ×2 (08:57→21:06)
[2017-01-14] MEDS: SERTRALINE 100 MG TABLET PO SCH (08:57)
[2017-01-14] MEDS: GABAPENTIN 100 MG CAPSULE PO SCH (08:57)
[2017-01-14] MEDS: POLYETHYL GLYCOL 3350 17gm PACKET PO SCH (08:58)
[2017-01-14] MEDS ORDERED: FALL RISK - PHARMACY CONSULT MC PRN (10:17)
[2017-01-14] MEDS ORDERED: WARFARIN 3 MG TABLET PO SCH (12:00)
[2017-01-14] MEDS: FUROSEMIDE 40 MG TABLET PO SCH (16:06)
[2017-01-14] MEDS: TRAZODONE 50 MG TABLET PO SCH (21:05)
[2017-01-14] MEDS: ATORVASTATIN 20 MG TABLET PO SCH (21:05)
[2017-01-14] MEDS: MELATONIN 1 MG TABLET PO SCH (21:06)
[2017-01-14] MEDS: MIRTAZAPINE 15 MG TABLET PO SCH (21:08)
[2017-01-14] MEDS: FAMOTIDINE 20 MG TABLET PO SCH (21:08)
[2017-01-15] MEDS: ISOSORBIDE MONONITRATE ER 30 MG TABLET PO SCH ×2 (06:48→17:48)
--- NOTE | 2017-01-15 07:57 | Pharmacy Consult ---
Pharmacy Consult-Warfarin - Laboratory Information 01/13/17 01/14/17 01/15/17 04:44 04:40 07:09 INR 3.14 H 2.19 H 1.99 H - Consult Information Will give warfarin 4mg po today. Thank you.
[2017-01-15] MEDS: TRIHEXYPHENIDYL 2 MG TABLET PO SCH ×2 (09:35→21:15)
[2017-01-15] MEDS: FEXOFENADINE 180 MG TABLET PO SCH (09:35)
[2017-01-15] MEDS: FERROUS SULFATE 324 MG TABLET PO SCH (09:35)
[2017-01-15] MEDS: LOSARTAN 100 MG TABLET PO SCH (09:36)
[2017-01-15] MEDS: SOTALOL 80 MG TABLET PO SCH ×3 (09:36→21:13)
[2017-01-15] MEDS: Bisacodyl EC TAB 5 MG TABLET PO SCH (09:36)
[2017-01-15] MEDS: PRIMIDONE 50 MG TABLET PO SCH ×3 (09:37→21:16)
[2017-01-15] MEDS: FUROSEMIDE 80 MG TABLET PO SCH (09:37)
[2017-01-15] MEDS: POLYETHYL GLYCOL 3350 17gm PACKET PO SCH (09:37)
[2017-01-15] MEDS: GABAPENTIN 100 MG CAPSULE PO SCH (09:38)
[2017-01-15] MEDS: SERTRALINE 100 MG TABLET PO SCH (09:38)
[2017-01-15] MEDS: GUAIFENESIN LA 600 MG TABLET PO SCH ×2 (09:54→21:11)
[2017-01-15] MEDS: MICONAZOLE 2% POWDER 45gm TP PRN (11:44)
[2017-01-15] MEDS ORDERED: WARFARIN 4 MG TABLET PO SCH (12:00)
[2017-01-15] MEDS: INSULIN ASPART 100unit/ml INJECTION SQ PRN ×3 (12:53→22:05)
--- NOTE | 2017-01-15 13:34 | Progress Note ---
Subjective: Vijaya was seen after lunch. She complains of "feeling like a balloon all over" . She also doesn't care for the pureed diet and would like to have the consistency of her food changed, if possible. She denies feeling short of breath ; no conversational dyspnea. Objective Vital signs: Temperature 98.6 F 01/15/17 07:29 Pulse Rate 73 01/15/17 09:36 Respiratory Rate 20 01/15/17 07:29 Blood Pressure 150/79 H 01/15/17 07:29 Pulse Oximetry 94 01/15/17 07:29 Oxygen Delivery Method Nasal Cannula Oxygen Flow Rate 3 Fraction of Inspired Oxygen 90 Body Mass Index: 37.5 - Constitutional Present: no acute distress, well nourished, well developed - Routine HEENT Exam ENT: Present: mucous membranes moist, oropharynx clear - Routine Respiratory Exam Present: decreased breath sounds - Routine Cardiovascular Exam Present: S1, S2 - Routine Abdominal Exam Present: soft, normoactive bowel sounds, non distended, non tender - Routine Extremities Exam Present: edema - Routine Musculoskeletal Exam Musculoskeletal: Present: moving extremities well - Routine Skin Exam Present: intact, dry, warm - Routine Neurological Exam Present: alert, oriented X3, CN II-XII intact left vp & general counsel slightly weaker than right - Routine Psychiatric Exam Present: normal affect, normal thought process, cooperative Results - Labs CBC & Chem 7: 01/13/17 04:44 01/14/17 04:40 Assessment and Plan (1) CVA (cerebral vascular accident) Current visit: Yes Status: Acute DVT Prophylaxis: Coumadin Resuscitation Status: Do Not Resuscitate Assessment and Plan: Impression: Recent CVA with expressive dysphasia and subjective feeling of left-sided weakness. Acute on chronic hypoxemic respiratory failure Hypokalemia Recent left knee contusion with left leg edema CHF, unknown EF Paroxysmal atrial fibrillation-anticoagulant therapy Sick sinus syndrome with placement of permanent pacemaker Hypertension Hyperlipidemia COPD Obstructive sleep apnea-CPAP not effective per patient. Uses 3 L of oxygen at night Diabetes mellitus Type II, Recent A1c was 8.2% Ascending aortic aneurysm-stable Spinal stenosis Essential tremor Chronic anemia, iron deficiency GERD History of colon cancer with resection and chemotherapy, no evidence of recurrence History of narcotic drug use Plan Hyperglycemia - continue SSI; however, with fairly persistent elevated readings , suspect we will need to start a routine medication. She's had hypoglycemia in the past with metformin; with this knowledge our options are limited. Consider scheduled insulin - will discuss with attending. Decreased breath sounds; hx PAF; reported CHF with unknown EF - obtain 2 view CXR + EKG. Start monitoring weights. Takes Coumadin for PAF; INR 1.99 - pharmacy managing. Will give Lovenox today to bridge. Hypokalemia (mild) - recheck labs in am. Stroke - continue therapy and speech therapy. Sepsis Assessment - Evaluation Sepsis screening result: No Definite Risk Hospital Course Summary Disclaimer: The visit summary below is not to be considered part of the above Progress Note. Hospital Course: 01/13/17 - Hospitalist Consult Agree with IRU admission for strengthening, ambulation and ADLs. As well as monitoring of neurologic changes, blood pressure, oxygen saturations, and blood sugars. Pharmacy will monitor her warfarin/INR. Expect the left knee should continue to improve with time. Monitor O2 sats, oxygen as needed to keep sats greater than 90%. She sleeps with 3 L. Duoneb treatments when necessary. Monitor blood pressures. Cardiac medications include clonidine, nifedipine, losartan, furosemide and potassium, sotalol, metoprolol, Imdur, and Lipitor. Confirmed patient's home medications with her mcc [facility]. Recent A1c was 8.2, blood sugars ranging upper 100s to over 200 since admission. Start sliding scale insulin protocol and initiate metformin 500 mg daily. Monitor kidney function with initiation of metformin. 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 Poon, or have her establish as an OP after dismissal. Upon dismissal, patient's care will return to her PCP, Dr. Guillory. 01/15/17 Hyperglycemia - continue SSI; however, with fairly persistent elevated readings , suspect we will need to start a routine medication. She's had hypoglycemia in the past with metformin; with this knowledge our options are limited. Consider scheduled insulin - will discuss with attending. Check A1c. Decreased breath sounds; hx PAF; reported CHF with unknown EF - obtain 2 view CXR + EKG. Start monitoring weights. Takes Coumadin for PAF; INR 1.99 - pharmacy managing. Will give Lovenox today to bridge. Hypokalemia (mild) - recheck labs in am. Stroke - continue therapy and speech therapy.
[2017-01-15] MEDS ORDERED: ENOXAPARIN 40 MG/0.4 ML INJECTION SQ ONE (14:09)
[2017-01-15] MEDS: FUROSEMIDE 40 MG TABLET PO SCH ×2 (15:19→15:20)
[2017-01-15] MEDS: TRAZODONE 50 MG TABLET PO SCH (21:11)
[2017-01-15] MEDS: MIRTAZAPINE 15 MG TABLET PO SCH (21:12)
[2017-01-15] MEDS: FAMOTIDINE 20 MG TABLET PO SCH (21:17)
[2017-01-15] MEDS: MELATONIN 1 MG TABLET PO SCH (21:17)
[2017-01-15] MEDS: ATORVASTATIN 20 MG TABLET PO SCH (21:17)
[2017-01-16] MEDS: INSULIN ASPART 100unit/ml INJECTION SQ PRN ×3 (06:16→17:38)
[2017-01-16] MEDS: ISOSORBIDE MONONITRATE ER 30 MG TABLET PO SCH ×2 (06:16→17:38)
--- NOTE | 2017-01-16 07:56 | Pharmacy Consult ---
Pharmacy Consult-Warfarin - Laboratory Information 01/13/17 01/14/17 01/15/17 04:44 04:40 07:09 INR 3.14 H 2.19 H 1.99 H 01/16/17 04:46 INR 1.92 H - Consult Information COUMADIN CONSULT (Recurring): Today's INR = 1.92. Will give Warfarin 5mg today. Will continue to monitor & make adjustments accordingly. Thank you.
[2017-01-16] MEDS: SOTALOL 80 MG TABLET PO SCH ×3 (09:02→22:07)
[2017-01-16] MEDS: FEXOFENADINE 180 MG TABLET PO SCH (09:03)
[2017-01-16] MEDS: GABAPENTIN 100 MG CAPSULE PO SCH (09:03)
[2017-01-16] MEDS: TRIHEXYPHENIDYL 2 MG TABLET PO SCH ×2 (09:03→22:06)
[2017-01-16] MEDS: LOSARTAN 100 MG TABLET PO SCH (09:04)
[2017-01-16] MEDS: GUAIFENESIN LA 600 MG TABLET PO SCH ×2 (09:04→22:09)
[2017-01-16] MEDS: FUROSEMIDE 80 MG TABLET PO SCH (09:04)
[2017-01-16] MEDS: FERROUS SULFATE 324 MG TABLET PO SCH (09:04)
[2017-01-16] MEDS: PRIMIDONE 50 MG TABLET PO SCH ×3 (09:04→22:10)
[2017-01-16] MEDS: SERTRALINE 100 MG TABLET PO SCH (09:05)
[2017-01-16] MEDS: POLYETHYL GLYCOL 3350 17gm PACKET PO SCH (09:05)
[2017-01-16] MEDS: Bisacodyl EC TAB 5 MG TABLET PO SCH (09:05)
--- NOTE | 2017-01-16 09:28 | XRay Report ---
INDICATION: decreased breath sounds PROCEDURE: CHEST 2-VIEWS UPRIGHT (PA & LAT) Encounter: Initial COMPARISON: March 22, 2015 Findings: The lungs are stable in appearance without new focal airspace consolidation. There is no pleural effusion or pneumothorax. Support devices are stable. The heart size, pulmonary vascularity and mediastinal contours are unchanged. Tortuous thoracic aorta. IMPRESSION: Stable appearance of the chest without acute cardiopulmonary disease. .
--- NOTE | 2017-01-16 11:03 | IRU Progress Note ---
- Subjective/Serverity of Illness Vijaya continues to dissipate with therapy. She has numerous medical issues that we are monitoring including her COPD and hypoxemia. Please see discussion below in this regard. With regard to therapy, she requires at least contact-guard assistance if not more for ambulation. She has suffered a recent CVA. Has primarily left-sided weakness. In addition she has had some difficulty swallowing and is on a pured diet. She does not like this. She does have constipation and is on MiraLAX which she also does not like. Nevertheless she is very cooperative and seems to participate well. A bit on medical conditions as follows: 1. 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 Continues to work with physical therapy and occupational therapy as well as speech. 2. Acute on chronic hypoxemic respiratory failure with saturations less than 90 % on room air in [place]. She remains on oxygen all night every night. She is currently on oxygen as well during the daytime which is a new development since being at home. Her saturations range between 90-95% on O2 (at 1-3 L/m per nasal cannula). 3. Reported congestive heart failure with uncertain ejection fraction. This appears to be stable. Her lungs do demonstrate some wheezing but no definite crackles. 4. COPD which is symptomatic. At home she is on as needed albuterol.. 5. Left knee contusion with left leg edema. This is symptomatic and will impact her therapy. She continues to have some discomfort in the left knee but it is improving. 6. Hypertension which has been under less control recently. 7. Diabetes mellitus type 2. She is on sliding scale insulin. Has had hypoglycemia with metformin in the past. 8. Paroxysmal atrial fibrillation. Patient is on warfarin managed by pharmacy. Exam Vital Signs: Temperature 98.2 F 01/16/17 07:48 Pulse Rate 67 01/16/17 07:48 Respiratory Rate 16 01/16/17 07:48 Blood Pressure 151/80 H 01/16/17 07:48 Pulse Oximetry 96 01/16/17 07:48 Oxygen Delivery Method Nasal Cannula Oxygen Flow Rate 3 Fraction of Inspired Oxygen 90 Height: 1.68 m Weight: 103.8 kg Body Mass Index: 37.5 - Constitutional Present: mild distress Comments: The patient is awake, alert and oriented. She does appear to be dyspneic and does have some pursed lip breathing. Pupils are equal. The neck is supple. Chest: Occasional respiratory wheeze bilaterally. Diminished breath sounds otherwise.. Cor: RR with no bert, click nor murmur Abd: soft with normo-active bowel sounds. There are no masses, no tenderness and no guarding. Extremities: No edema is noted. Neurologic: Some decreased strength in left upper extremity compared to right. Otherwise ambulate with walker and seems to be improving. Results IRU - Labs Labs: Have reviewed recent labs including blood sugars. Sepsis Assessment - Evaluation Sepsis screening result: No Definite Risk IRU A/P (1) CVA (cerebral vascular accident) Qualifiers: CVA mechanism: thrombosis Precerebral and cerebral artery: other cerebral artery Qualified Code(s): I63.39 - Cerebral infarction due to thrombosis of other cerebral artery Current visit: Yes Status: Acute No source of embolus has been identified. She is stable. She does have expressive dysphasia as well as some difficulty with swallowing. She is followed by speech therapy as well as OT and PT. she does have paroxysmal atrial fibrillation and is on warfarin. (2) Episodic atrial fibrillation Current visit: Yes Status: Chronic Recent INR 1.92. Sounds like she is in a regular rhythm at present. (3) COPD (chronic obstructive pulmonary disease) with emphysema Qualifiers: Emphysema type: unspecified Qualified Code(s): J43.9 - Emphysema, unspecified Current visit: Yes Status: Chronic Does have chronic pulmonary disease. Does have expiratory wheezes and hypoxemia. (4) Benign essential hypertension Current visit: Yes Status: Chronic (5) Acute respiratory failure with hypoxemia Current visit: Yes Status: Acute She remains on oxygen supplementation even during the daytime. This is a new finding since being at home. Requires between 1-3 L/m by nasal cannula. (6) Diabetes mellitus type 2 in obese Current visit: Yes Status: Chronic Blood sugars are running a bit high. She is on a sliding scale insulin at present. Per hospitalists. (7) Contusion of knee, left Qualifiers: Encounter type: subsequent encounter Qualified Code(s): S80.02XD - Contusion of left knee, subsequent encounter Current visit: Yes Status: Acute DVT Prophylaxis: Coumadin Resuscitation Status: Do Not Resuscitate - Course Hospital Course: Camilo Rebolledo MD: 01/16/17 11:07 Patient continues to improve with therapies. She has respiratory limitation for exercise. Left knee hurts as well. She does not like the MiraLAX nor the pured diet. Continue OT, PT and speech therapy. Blood sugars running a bit elevated. Per hospitalists. - Interventions to Obtain Goals PT Treatment Plan: Balance/Proprioception, Functional Activities, Gait Training , Patient/Family Education, Therapeutic Exercise OT Treatment Plan: ADL (Basic Care), Balance Training, Pt./Family Education, Ther. Exercise for ADL
[2017-01-16] MEDS: ACETAMINOPHEN 325 MG TABLET PO PRN (11:26)
[2017-01-16] MEDS ORDERED: FALL RISK - PHARMACY CONSULT MC PRN (11:49)
[2017-01-16] MEDS ORDERED: WARFARIN 5 MG TABLET PO SCH (12:00)
[2017-01-16] MEDS: FUROSEMIDE 40 MG TABLET PO SCH (15:35)
[2017-01-16] MEDS: MELATONIN 1 MG TABLET PO SCH (22:06)
[2017-01-16] MEDS: MIRTAZAPINE 15 MG TABLET PO SCH (22:09)
[2017-01-16] MEDS: ATORVASTATIN 20 MG TABLET PO SCH (22:11)
[2017-01-16] MEDS: TRAZODONE 50 MG TABLET PO SCH (22:12)
[2017-01-16] MEDS: FAMOTIDINE 20 MG TABLET PO SCH (22:13)
[2017-01-17] MEDS: ISOSORBIDE MONONITRATE ER 30 MG TABLET PO SCH ×2 (06:14→18:22)
[2017-01-17] MEDS: INSULIN ASPART 100unit/ml INJECTION SQ PRN ×4 (06:19→22:14)
--- NOTE | 2017-01-17 07:31 | Pharmacy Consult ---
Pharmacy Consult-Warfarin - Laboratory Information 01/13/17 01/14/17 01/15/17 04:44 04:40 07:09 INR 3.14 H 2.19 H 1.99 H 01/16/17 01/17/17 04:46 04:29 INR 1.92 H 2.25 H - Consult Information COUMADIN CONSULT (Recurring): Today's INR = 2.25. Will give Warfarin 5mg today. Will continue to monitor & make adjustments accordingly. Thank you.
[2017-01-17] MEDS: PROMETHAZINE 25 MG TABLET PO PRN (07:36)
[2017-01-17] MEDS: SERTRALINE 100 MG TABLET PO SCH (08:40)
[2017-01-17] MEDS: FERROUS SULFATE 324 MG TABLET PO SCH (08:40)
[2017-01-17] MEDS: TRIHEXYPHENIDYL 2 MG TABLET PO SCH ×2 (08:41→20:29)
[2017-01-17] MEDS: PRIMIDONE 50 MG TABLET PO SCH ×3 (08:41→20:26)
[2017-01-17] MEDS: FEXOFENADINE 180 MG TABLET PO SCH (08:41)
[2017-01-17] MEDS: GABAPENTIN 100 MG CAPSULE PO SCH (08:42)
[2017-01-17] MEDS: Bisacodyl EC TAB 5 MG TABLET PO SCH (08:42)
[2017-01-17] MEDS: SOTALOL 80 MG TABLET PO SCH ×3 (08:42→20:24)
[2017-01-17] MEDS: GUAIFENESIN LA 600 MG TABLET PO SCH ×2 (08:42→20:27)
[2017-01-17] MEDS: FUROSEMIDE 80 MG TABLET PO SCH (08:43)
[2017-01-17] MEDS: LOSARTAN 100 MG TABLET PO SCH (08:45)
[2017-01-17] MEDS: POLYETHYL GLYCOL 3350 17gm PACKET PO SCH (08:45)
--- NOTE | 2017-01-17 11:11 | IRU Progress Note ---
- Subjective/Serverity of Illness Vijaya is evaluated in her room. She does have dyspnea with activity. Continues to have expressive dysphasia. She was on a pured diet. However she has now been upgraded. Denies any cough at present. Still has wheezes. She is working with therapy and improving. 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 Update on medical issues as follows: 1. 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 Her speech remains dysarthric. Swallowing is improved. She is followed by PT, OT and speech. 2. Acute on chronic hypoxemic respiratory failure with saturations less than 90 % on room air in [place]. She remains on oxygen all night every night. She is currently on oxygen as well during the daytime which is a new development since being at home. Her saturations range between 90-95% on O2 (at 1-3 L/m per nasal cannula). She continues to require supplemental oxygen. 3. Reported congestive heart failure with uncertain ejection fraction. This appears to be stable. Her lungs do demonstrate some wheezing but no definite crackles. 4. COPD which is symptomatic. At home she is on as needed albuterol. Denies significant cough. She does have wheezes. 5. Left knee contusion with left leg edema. This is symptomatic and will impact her therapy. She continues to have some discomfort in the left knee but it is improving. 6. Hypertension which has been under less control recently. 7. Diabetes mellitus type 2. She is on sliding scale insulin. Has had hypoglycemia with metformin in the past. Blood sugars are noted. There are stable. 8. Paroxysmal atrial fibrillation. Patient is on warfarin managed by pharmacy. Exam Vital Signs: Temperature 98.0 F 01/17/17 07:31 Pulse Rate 68 01/17/17 08:42 Respiratory Rate 24 01/17/17 07:31 Blood Pressure 152/80 H 01/17/17 07:31 Pulse Oximetry 92 01/17/17 07:31 Oxygen Delivery Method Nasal Cannula Oxygen Flow Rate 2 Fraction of Inspired Oxygen 90 Height: 1.68 m Weight: 104.4 kg Body Mass Index: 37.5 - Constitutional Present: mild distress Comments: The patient is awake, alert and oriented and in mild distress regarding her breathing after exercise. She has notable dysarthria. Pupils are equal. The neck is supple. Chest: There are some scattered expiratory wheezes bilaterally with prolonged expiratory phase. Cor: irregular rhythm with no gallop, click nor murmur Abd: soft with normo-active bowel sounds. There are no masses, no tenderness and no guarding. Extremities: No edema is noted. No cyanosis is present. She is on oxygen at present. Results IRU - Labs Labs: Reviewed laboratory including her blood sugars. No hypoglycemia noted at present. 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 Does have dysarthria. Dietitian has been advanced. (2) Episodic atrial fibrillation Current visit: Yes Status: Chronic She is on warfarin with therapeutic INR managed by pharmacy. (3) COPD (chronic obstructive pulmonary disease) with emphysema Qualifiers: Emphysema type: unspecified Qualified Code(s): J43.9 - Emphysema, unspecified Current visit: Yes Status: Chronic Continues on albuterol as needed. Has chronic wheezes. Has respiratory limitation to activity. (4) Benign essential hypertension Current visit: Yes Status: Chronic (5) Acute respiratory failure with hypoxemia Current visit: Yes Status: Acute Has new requirement for oxygen 24 hours daily at present. We will reassess prior to dismissal. (6) Diabetes mellitus type 2 in obese Current visit: Yes Status: Chronic (7) Contusion of knee, left Qualifiers: Encounter type: subsequent encounter Qualified Code(s): S80.02XD - Contusion of left knee, subsequent encounter Current visit: Yes Status: Acute DVT Prophylaxis: Coumadin Resuscitation Status: Do Not Resuscitate - Course Hospital Course: Camilo Rebolledo MD: 01/16/17 11:07 Patient continues to improve with therapies. She has respiratory limitation for exercise. Left knee hurts as well. She does not like the MiraLAX nor the pured diet. Continue OT, PT and speech therapy. Blood sugars running a bit elevated. Per hospitalists. 01/17/17 11:14 She is improving with regard to therapy. Requires oxygen supplementation. Has respiratory limitation to activity. Blood sugars are stable without evidence of hypoglycemia. - Interventions to Obtain Goals PT Treatment Plan: Balance/Proprioception, Functional Activities, Gait Training , Patient/Family Education, Therapeutic Exercise OT Treatment Plan: ADL (Basic Care), Balance Training, Pt./Family Education, Ther. Exercise for ADL
[2017-01-17] MEDS ORDERED: WARFARIN 5 MG TABLET PO SCH (12:00)
[2017-01-17] MEDS: GUAIFENESIN/D-METHORPHAN 600mg/30mg TABLET PO SCH ×2 (12:51→20:27)
--- NOTE | 2017-01-17 13:33 | Progress Note ---
<Georgette Ayala - Last Filed: 01/17/17 13:14> Subjective: Patient seen today sitting in her room. She complains of shortness of breath. No cough. She has history of COPD. She is on no routine inhalers. She is usually on 3 L of oxygen at night. Since her hospitalization in [place] she has required oxygen throughout the day as well. Her last PRN breathing treatment was given 2 days ago. No chest pain. She states she hasn't had a bowel movement 6 days. Her blood sugars have been high, averaging upper 100s to 200s. In discussion with patient, she reports she was on metformin for years and did well on it, but over time, her blood sugars kept getting lower and the medicine was finally discontinued. She would be willing to restart this medication. She had a chest x-ray and EKG over the weekend. Both were unremarkable. Her warfarin is being managed by pharmacy. Objective Vital signs: Temperature 98.0 F 01/17/17 07:31 Pulse Rate 68 01/17/17 08:42 Respiratory Rate 24 01/17/17 07:31 Blood Pressure 152/80 H 01/17/17 07:31 Pulse Oximetry 92 01/17/17 07:31 Oxygen Delivery Method Nasal Cannula Oxygen Flow Rate 2 Fraction of Inspired Oxygen 90 Body Mass Index: 37.5 - Constitutional Present: no acute distress, well nourished, well developed, obese - Routine HEENT Exam Head: Present: normocephalic, atraumatic - Routine Respiratory Exam Present: accessory muscle use, dyspnea, prolonged expiratory phase, wheezes ( expiratory), distant breath sounds, diminished air movement - Routine Cardiovascular Exam Present: RRR, S1, S2. Absent: murmur - Routine Abdominal Exam Present: soft, normoactive bowel sounds, non distended. Absent: tenderness - Routine Extremities Exam Present: edema (trace edema right lower extremity, 1+ edema left lower extremity (recent injury to left knee)), normal capillary refill - Routine Skin Exam Present: dry, warm - Routine Neurological Exam Present: alert, oriented X3 - Routine Lymphatic Exam Lymphatic: Absent: adenopathy - Routine Psychiatric Exam Present: normal affect Results - Labs CBC & Chem 7: 01/16/17 04:46 01/16/17 04:46 Labs: 01/15/1716-[id number] negative. No acute findings. - Imaging and Cardiology Chest x-ray Additional comments: 01/15/17-chest x-ray IMPRESSION: Stable appearance of the chest without acute cardiopulmonary disease. Assessment and Plan (1) CVA (cerebral vascular accident) Current visit: Yes Status: Acute Assessment and Plan: Impression: Constipation Diabetes mellitus Type II, Recent A1c was 8.2%-blood sugars not to goal COPD-exacerbation Recent CVA with expressive dysphasia and subjective feeling of left-sided weakness. Acute on chronic hypoxemic respiratory failure Hypokalemia Recent left knee contusion with left leg edema CHF, unknown EF Paroxysmal atrial fibrillation-anticoagulant therapy Sick sinus syndrome with placement of permanent pacemaker Hypertension Hyperlipidemia Obstructive sleep apnea-CPAP not effective per patient. Uses 3 L of oxygen at night Ascending aortic aneurysm-stable Spinal stenosis Essential tremor Chronic anemia, iron deficiency GERD History of colon cancer with resection and chemotherapy, no evidence of recurrence History of narcotic drug use Plan Will start metformin 500 mg daily. If she tolerates this and continues to have high blood sugars will increase to twice a day. Start routine DuoNeb and budesonide treatments. Acapella ordered. Mucinex DM twice a day. Brown cow now for constipation. If she has no results by this evening, nurses were instructed to give her PRN bisacodyl suppository. Start Senna plus twice a day routinely. She already has bisacodyl 5 mg by mouth ordered daily. Recommend she establish with hook up driver after dismissal. Sepsis Assessment - Evaluation Sepsis screening result: No Definite Risk Hospital Course Summary Disclaimer: The visit summary below is not to be considered part of the above Progress Note. Hospital Course: 01/13/17 - Hospitalist Consult Agree with IRU admission for strengthening, ambulation and ADLs. As well as monitoring of neurologic changes, blood pressure, oxygen saturations, and blood sugars. Pharmacy will monitor her warfarin/INR. Expect the left knee should continue to improve with time. Monitor O2 sats, oxygen as needed to keep sats greater than 90%. She sleeps with 3 L. Duoneb treatments when necessary. Monitor blood pressures. Cardiac medications include clonidine, nifedipine, losartan, furosemide and potassium, sotalol, metoprolol, Imdur, and Lipitor. Confirmed patient's home medications with her senior living MAR. Recent A1c was 8.2, blood sugars ranging upper 100s to over 200 since admission. Start sliding scale insulin protocol and initiate metformin 500 mg daily. Monitor kidney function with initiation of metformin. 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 Poon, or have her establish as an OP after dismissal. Upon dismissal, patient's care will return to her PCP, Dr. Guillory. 01/15/17 Hyperglycemia - continue SSI; however, with fairly persistent elevated readings , suspect we will need to start a routine medication. She's had hypoglycemia in the past with metformin; with this knowledge our options are limited. Consider scheduled insulin - will discuss with attending. Check A1c. Decreased breath sounds; hx PAF; reported CHF with unknown EF - obtain 2 view CXR + EKG. Start monitoring weights. Takes Coumadin for PAF; INR 1.99 - pharmacy managing. Will give Lovenox today to bridge. Hypokalemia (mild) - recheck labs in am. Stroke - continue therapy and speech therapy. 01/17/17 Will start metformin 500 mg daily. If she tolerates this and continues to have high blood sugars will increase to twice a day. Exacerbation of COPD. Start routine DuoNeb and budesonide treatments. Acapella ordered. Mucinex DM twice a day. Brown cow now for constipation. If she has no results by this evening, nurses were instructed to give her PRN bisacodyl suppository. Start Senna plus twice a day routinely. She already has bisacodyl 5 mg by mouth ordered daily. Recommend she establish with hook up driver after dismissal. <Paulo Chester - Last Filed: 01/17/17 17:22> Objective Vital signs: Temperature 97.4 F 01/17/17 15:45 Pulse Rate 70 01/17/17 15:45 Respiratory Rate 16 01/17/17 15:45 Blood Pressure 122/67 01/17/17 15:45 Pulse Oximetry 94 01/17/17 15:45 Oxygen Delivery Method Nasal Cannula Oxygen Flow Rate 2 Fraction of Inspired Oxygen 90 Height/Weight/BMI: Height 1.68 m Weight 104.4 kg Body Mass Index 37.5 Results - Labs CBC & Chem 7: 01/16/17 04:46 08/14/17 04:46 Assessment and Plan (1) CVA (cerebral vascular accident) Current visit: Yes Status: Acute Assessment and Plan: Impression: Recent CVA with expressive dysphasia and subjective feeling of left-sided weakness. Constipation Diabetes mellitus Type II, Recent A1c was 8.2%-blood sugars not to goal COPD-exacerbation Acute on chronic hypoxemic respiratory failure Hypokalemia Recent left knee contusion with left leg edema CHF, unknown EF Paroxysmal atrial fibrillation-anticoagulant therapy Sick sinus syndrome with placement of permanent pacemaker Hypertension Hyperlipidemia Obstructive sleep apnea-CPAP not effective per patient. Uses 3 L of oxygen at night Ascending aortic aneurysm-stable Spinal stenosis Essential tremor Chronic anemia, iron deficiency GERD History of colon cancer with resection and chemotherapy, no evidence of recurrence History of narcotic drug use Have independently interviewed and examined pt. Chart reviewed. Case discussed with my PA. Above care plan developed with my supervision; agree with above. Doing okay. Notes more SOA, worse with activities. Some cough/congestion. No pain with breathing. Needing O2 during the day. Not feeling chest pressure or pain. Eating well. No ab pain. Lungs: decreased, diminished air movement. Shallow respirations. CV: regular AB: soft, obese, nt. BS present MSE: awake alert, speaks with short phrases. Plan: Initiate routine Duoneb and Budesonide treatment as well as Mucinex DM to help breathing. If continued to need O2, would need to add IS to help her shallow breathing. Monitor sugars with metformin. Work on bowel motivation. Encourage continued work with therapy to maximize strength and functional status. Medically stable for IRU floor activities. Hospital Course Summary Disclaimer: The visit summary below is not to be considered part of the above Progress Note.
[2017-01-17] MEDS: BISACODYL 10 MG SUPPOSITORY RECTALLY PRN (13:35)
[2017-01-17] MEDS: ALBUTEROL/IPRATROPIUM 2.5mg-0.5mg/3ml NEB AEROSOL SCH ×2 (15:26→20:06)
[2017-01-17] MEDS: FUROSEMIDE 40 MG TABLET PO SCH (15:42)
--- NOTE | 2017-01-17 16:01 | IRU Team Meeting ---
IRU Team Meeting - Nursing Vital Signs: Vital Signs - 24 hr 01/16/17 20:51 01/16/17 22:07 01/17/17 07:31 Temperature 97.4 F 98.0 F Pulse Rate 65 65 68 Respiratory Rate 18 24 Blood Pressure 143/78 H 152/80 H Pulse Oximetry 97 92 01/17/17 08:42 01/17/17 15:27 01/17/17 15:42 Temperature Pulse Rate 68 70 Respiratory Rate 16 Blood Pressure Pulse Oximetry 01/17/17 15:45 Temperature 97.4 F Pulse Rate 70 Respiratory Rate 16 Blood Pressure 122/67 Pulse Oximetry 94 Current Medications: Acetaminophen (Tylenol) 650 mg PO Q4H PRN PRN Reason: pain Last Admin: 01/16/17 11:26 Dose: 650 mg Albuterol Sulfate (Ventolin Hfa) 2 puff INH Q4H PRN PRN Reason: Shortness of air/wheezing Albuterol/Ipratropium (Duoneb) 3 ml AEROSOL RTQID PRN PRN Reason: Wheezing Last Admin: 01/15/17 17:58 Dose: 3 ml Albuterol/Ipratropium (Duoneb) 3 ml AEROSOL RTQID KRISTEN Last Admin: 01/17/17 15:26 Dose: 3 ml Atorvastatin Calcium (Lipitor) 20 mg PO 2100 [facility] Last Admin: 01/16/17 22:11 Dose: 20 mg Bisacodyl (Dulcolax) 5 mg PO DAILY [facility] Last Admin: 01/17/17 08:42 Dose: 5 mg Bisacodyl (Dulcolax) 10 mg RECTALLY DAILY PRN PRN Reason: Constipation Last Admin: 01/17/17 13:35 Dose: 10 mg Budesonide (Pulmicort Inhalation) 0.5 mg AEROSOL RTBID [facility] Clonidine HCl (Catapres) 0.3 mg PO TID [facility] Last Admin: 01/17/17 15:42 Dose: 0.3 mg Dextrose (D50%W) 20 ml IVP PRN PRN PRN Reason: Hypoglycemia Famotidine (Pepcid) 20 mg PO 2100 [facility] Last Admin: 01/16/17 22:13 Dose: 20 mg Ferrous Sulfate (Feosol) 324 mg PO WB [facility] Last Admin: 01/17/17 08:40 Dose: 324 mg Fexofenadine HCl (Lauren) 180 mg PO DAILY [facility] Last Admin: 01/17/17 08:41 Dose: 180 mg Furosemide (Lasix) 40 mg PO 1600 [facility] Last Admin: 01/17/17 15:42 Dose: 40 mg Furosemide (Lasix) 80 mg PO DAILY [facility] Last Admin: 01/17/17 08:43 Dose: 80 mg Gabapentin (Neurontin) 200 mg PO DAILY [facility] Last Admin: 01/17/17 08:42 Dose: 200 mg Glucose (Glutose 15) 37.5 gm PO PRN PRN PRN Reason: Hypoglycemia Guaifenesin (Mucinex La) 600 mg PO BID [facility] Last Admin: 01/17/17 08:42 Dose: 600 mg Guaifenesin/Dextromethorphan (Mucinex Dm) 1 tab PO BID [facility] Last Admin: 01/17/17 12:51 Dose: 1 tab Insulin Aspart (Novolog) 0 unit SQ SS PRN; Protocol PRN Reason: Hyperglycemia Last Admin: 01/17/17 12:52 Dose: 1 unit Isosorbide Mononitrate (Imdur) 15 mg PO ACBID [facility] Last Admin: 01/17/17 06:14 Dose: 15 mg Losartan Potassium (Cozaar) 100 mg PO DAILY [facility] Last Admin: 01/17/17 08:45 Dose: 100 mg Magnesium Hydroxide (Mom) 30 ml PO DAILY PRN PRN Reason: Constipation Last Admin: 01/17/17 08:48 Dose: 30 ml Meclizine HCl (Antivert) 12.5 mg PO Q6H PRN PRN Reason: Dizziness Melatonin (Melatonin) 3 mg PO 2100 [facility] Last Admin: 01/16/17 22:06 Dose: 3 mg Metformin HCl (Glucophage) 500 mg PO [facility] Metoprolol Succinate (Toprol Xl) 50 mg PO DAILY [facility] Last Admin: 01/17/17 08:43 Dose: 50 mg Miconazole Nitrate (Desenex) 1 applic TP BID PRN PRN Reason: treatment or pervention of inf Last Admin: 01/15/17 11:44 Dose: 1 applic Mirtazapine (Remeron) 7.5 mg PO 2100 [facility] Last Admin: 01/16/17 22:09 Dose: 7.5 mg Nifedipine (Procardia Xl) 90 mg PO DAILY [facility] Last Admin: 01/17/17 08:43 Dose: 90 mg Polyethylene Glycol (Miralax) 17 gm PO DAILY [facility] Last Admin: 01/17/17 08:45 Dose: 17 gm Potassium Chloride (K-Dur) 20 meq PO [facility] Last Admin: 01/17/17 12:51 Dose: 20 meq Primidone (Mysoline) 25 mg PO TID [facility] Last Admin: 01/17/17 15:43 Dose: 25 mg Promethazine HCl (Phenergan Tab) 25 mg PO Q6H PRN Last Admin: 01/17/17 07:36 Dose: 25 mg Senna/Docusate Sodium (Senna Plus Tablet) 1 tab PO BID [facility] Sertraline HCl (Zoloft) 100 mg PO DAILY [facility] Last Admin: 01/17/17 08:40 Dose: 100 mg Sotalol HCl (Betapace) 40 mg PO TID [facility] Last Admin: 01/17/17 15:42 Dose: 40 mg Trazodone HCl (Desyrel) 50 mg PO 2100 [facility] Last Admin: 01/16/17 22:12 Dose: 50 mg Trihexyphenidyl HCl (Artane) 1 mg PO BID [facility] Last Admin: 01/17/17 08:41 Dose: 1 mg Warfarin Sodium (Coumadin Protocol) 1 NOTE [facility] Comments: Patient has developed some nausea today. She is constipated and has not had a bowel movement for about 6 days. She is receiving laxatives. She is on warfarin for atrial fibrillation. INR is therapeutic. Recently has some dysuria with negative UA. Speech therapy working with patient. Patient does have some expressive dysphasia. Patient is improving with regard to word finding. Has decreased ability to process. Concerning her diet she was tried on some chopped meat. She has improved with regard to her rate. She is safe with thin liquids. - Physical Therapy Comments: She is making good progress with physical therapy. She is walking 359 feet with contact guard assistance. She is doing 12 steps on the stairs. Continues to make progress and moving toward goals. - Occupational Therapy Lower Body Dressing Comment: She is working with occupational therapy. She is progressing and working on balance. Also working on dressing. Significant safety concerns exist. - Care Plan Anticipated Length of Stay: 7 Anticipated DC Destination: Home, Self Care Interventions/Goals: Barriers to dismissal: 1. Left knee pain 2. COPD with dyspnea 3. Endurance Goals 1. Learn how to breathe through her nose more with oxygen in place 2. Walk more independently 3. Goal of 100 yard distance to go to her dining area at assisted living 3. Return to regular diet 4. Safety training regarding oxygen tubing. I certify that I personally led the interdisciplinary team meeting and agree with comments, barriers and goals indicated. Team meeting was held in the patient's room with the patient and the following family members present:
[2017-01-17] MEDS: METFORMIN 500 MG TABLET PO SCH (18:22)
[2017-01-17] MEDS: BUDESONIDE INH.SOLN 0.5mg/2ml NEB AEROSOL SCH (20:06)
[2017-01-17] MEDS: ATORVASTATIN 20 MG TABLET PO SCH (20:27)
[2017-01-17] MEDS: MELATONIN 1 MG TABLET PO SCH (20:28)
[2017-01-17] MEDS: MIRTAZAPINE 15 MG TABLET PO SCH (20:30)
[2017-01-17] MEDS: TRAZODONE 50 MG TABLET PO SCH (20:31)
[2017-01-17] MEDS: FAMOTIDINE 20 MG TABLET PO SCH (20:31)
[2017-01-17] MEDS: SENNA + DOCUSATE TABLET PO SCH (20:32)
[2017-01-18] MEDS: ISOSORBIDE MONONITRATE ER 30 MG TABLET PO SCH ×3 (05:28→18:58)
[2017-01-18] MEDS: INSULIN ASPART 100unit/ml INJECTION SQ PRN ×3 (05:37→19:02)
--- NOTE | 2017-01-18 07:59 | Pharmacy Consult ---
Pharmacy Consult-Warfarin - Laboratory Information 01/13/17 01/14/17 01/15/17 04:44 04:40 07:09 INR 3.14 H 2.19 H 1.99 H 01/16/17 01/17/17 01/18/17 04:46 04:29 05:04 INR 1.92 H 2.25 H 2.55 H ALDO is 76yo F admitted to IRU for PT/OT to ADL's post recent CVA (left sided). Other comorbidities of COPD, HTN, CHF. Home dose of Warfarin reported as 3mg alternating with 6mg. Noted drug-drug interaction with sertraline which can increase INR. Will give warfarin 4mg today. Thank you
[2017-01-18] MEDS: FERROUS SULFATE 324 MG TABLET PO SCH (08:35)
[2017-01-18] MEDS: FEXOFENADINE 180 MG TABLET PO SCH (08:36)
[2017-01-18] MEDS: TRIHEXYPHENIDYL 2 MG TABLET PO SCH ×2 (08:37→21:28)
[2017-01-18] MEDS: SOTALOL 80 MG TABLET PO SCH ×3 (08:37→21:42)
[2017-01-18] MEDS: BUDESONIDE INH.SOLN 0.5mg/2ml NEB AEROSOL SCH ×3 (08:40→20:46)
[2017-01-18] MEDS: LOSARTAN 100 MG TABLET PO SCH (08:50)
[2017-01-18] MEDS: GABAPENTIN 100 MG CAPSULE PO SCH (08:52)
[2017-01-18] MEDS: PRIMIDONE 50 MG TABLET PO SCH ×3 (08:52→21:39)
[2017-01-18] MEDS: SENNA + DOCUSATE TABLET PO SCH (08:55)
[2017-01-18] MEDS: SERTRALINE 100 MG TABLET PO SCH (08:57)
[2017-01-18] MEDS: POLYETHYL GLYCOL 3350 17gm PACKET PO SCH (08:58)
[2017-01-18] MEDS: GUAIFENESIN LA 600 MG TABLET PO SCH ×2 (08:58→21:37)
[2017-01-18] MEDS: Bisacodyl EC TAB 5 MG TABLET PO SCH (08:58)
[2017-01-18] MEDS: FUROSEMIDE 80 MG TABLET PO SCH (09:00)
[2017-01-18] MEDS: ALBUTEROL/IPRATROPIUM 2.5mg-0.5mg/3ml NEB AEROSOL SCH ×4 (09:07→20:47)
[2017-01-18] MEDS ORDERED: WARFARIN 4 MG TABLET PO SCH (12:00)
--- NOTE | 2017-01-18 12:05 | Progress Note ---
<Georgette Ayala - Last Filed: 01/18/17 12:01> Subjective: Patient is seen in her room sitting in her chair today. She reports her breathing is better after starting breathing treatments yesterday. She has been able to be off of her oxygen today and has maintained O2 sat of 94%. She reports she still has not had a bowel movement. She feels like things might be "starting to move." She reports things are going well with therapy. She has no complaints. Objective Vital signs: Temperature 98.5 F 01/18/17 07:00 Pulse Rate 84 01/18/17 08:37 Respiratory Rate 16 01/18/17 11:19 Blood Pressure 129/70 01/18/17 07:00 Pulse Oximetry 94 01/18/17 07:00 Oxygen Delivery Method Room Air Height/Weight/BMI: Height 1.68 m Weight 104.4 kg Body Mass Index 37.5 - Constitutional Present: no acute distress, well nourished, well developed - Routine HEENT Exam Head: Present: normocephalic, atraumatic ENT: Present: mucous membranes moist - Routine Respiratory Exam Present: distant breath sounds. Absent: respiratory distress Comments: Lungs sounds are better today. She no longer has wheezes. Still a bit coarse. - Routine Cardiovascular Exam Present: RRR, murmur (grade II) - Routine Abdominal Exam Present: soft, normoactive bowel sounds. Absent: tenderness - Routine Extremities Exam Present: normal capillary refill Comments: Continues to have edema and bruising to the left lower extremity secondary to her recent fall. - Routine Skin Exam Present: dry, warm - Routine Neurological Exam Present: alert - Routine Lymphatic Exam Lymphatic: Absent: adenopathy - Routine Psychiatric Exam Present: normal affect Results - Labs CBC & Chem 7: 01/16/17 04:46 01/16/17 04:46 Assessment and Plan (1) CVA (cerebral vascular accident) Current visit: Yes Status: Acute Assessment and Plan: Impression: Recent CVA with expressive dysphasia and subjective feeling of left-sided weakness. Constipation Diabetes mellitus Type II, Recent A1c was 8.2%-blood sugars not to goal COPD-exacerbation Acute on chronic hypoxemic respiratory failure Hypokalemia Recent left knee contusion with left leg edema CHF, unknown EF Paroxysmal atrial fibrillation-anticoagulant therapy Sick sinus syndrome with placement of permanent pacemaker Hypertension Hyperlipidemia Obstructive sleep apnea-CPAP not effective per patient. Uses 3 L of oxygen at night Ascending aortic aneurysm-stable Spinal stenosis Essential tremor Chronic anemia, iron deficiency GERD History of colon cancer with resection and chemotherapy, no evidence of recurrence History of narcotic drug use Plan: Continue bowel motivation. Utilize PRN milk of magnesia if she has no results within the next few hours. Continue DuoNeb and budesonide treatments. Continue to monitor O2 sats. Hopefully she'll be able to continue without oxygen throughout the day. She typically sleeps with 3 L of oxygen at night. Consider long-acting bronchodilator/steroid inhaler and/or anticholinergic inhaler on discharge. Blood sugars continue to be consistently elevated. Will increase metformin to 500 twice a day as she has tolerated initiation of once daily dosing. Sepsis Assessment - Evaluation Sepsis screening result: No Definite Risk Hospital Course Summary Disclaimer: The visit summary below is not to be considered part of the above Progress Note. Hospital Course: 01/13/17 - Hospitalist Consult Agree with IRU admission for strengthening, ambulation and ADLs. As well as monitoring of neurologic changes, blood pressure, oxygen saturations, and blood sugars. Pharmacy will monitor her warfarin/INR. Expect the left knee should continue to improve with time. Monitor O2 sats, oxygen as needed to keep sats greater than 90%. She sleeps with 3 L. Duoneb treatments when necessary. Monitor blood pressures. Cardiac medications include clonidine, nifedipine, losartan, furosemide and potassium, sotalol, metoprolol, Imdur, and Lipitor. Confirmed patient's home medications with her snf [facility]. Recent A1c was 8.2, blood sugars ranging upper 100s to over 200 since admission. Start sliding scale insulin protocol and initiate metformin 500 mg daily. Monitor kidney function with initiation of metformin. 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 Poon, or have her establish as an OP after dismissal. Upon dismissal, patient's care will return to her PCP, Dr. Guillory. 01/15/17 Hyperglycemia - continue SSI; however, with fairly persistent elevated readings , suspect we will need to start a routine medication. She's had hypoglycemia in the past with metformin; with this knowledge our options are limited. Consider scheduled insulin - will discuss with attending. Check A1c. Decreased breath sounds; hx PAF; reported CHF with unknown EF - obtain 2 view CXR + EKG. Start monitoring weights. Takes Coumadin for PAF; INR 1.99 - pharmacy managing. Will give Lovenox today to bridge. Hypokalemia (mild) - recheck labs in am. Stroke - continue therapy and speech therapy. 01/17/17 Will start metformin 500 mg daily. If she tolerates this and continues to have high blood sugars will increase to twice a day. Exacerbation of COPD. Start routine DuoNeb and budesonide treatments. Acapella ordered. Mucinex DM twice a day. Brown cow now for constipation. If she has no results by this evening, nurses were instructed to give her PRN bisacodyl suppository. Start Senna plus twice a day routinely. She already has bisacodyl 5 mg by mouth ordered daily. Recommend she establish with salon sales consultant after dismissal. 01/18/17 Continue bowel motivation. Utilize PRN milk of magnesia if she has no results within the next few hours. Continue DuoNeb and budesonide treatments. Continue to monitor O2 sats. Hopefully she'll be able to continue without oxygen throughout the day. She typically sleeps with 3 L of oxygen at night. Consider long-acting bronchodilator/steroid inhaler and/or anticholinergic inhaler on discharge. Blood sugars continue to be consistently elevated. Will increase metformin to 500 twice a day as she has tolerated initiation of once daily dosing. <Paulo Chester - Last Filed: 01/18/17 16:46> Objective Vital signs: Temperature 98.2 F 01/18/17 15:00 Pulse Rate 65 01/18/17 15:00 Respiratory Rate 20 01/18/17 15:03 Blood Pressure 143/87 H 01/18/17 15:00 Pulse Oximetry 94 01/18/17 15:00 Oxygen Delivery Method Room Air Oxygen Flow Rate 2 Fraction of Inspired Oxygen 90 Height/Weight/BMI: Height 1.68 m Weight 104.4 kg Body Mass Index 37.5 Results - Labs CBC & Chem 7: 01/16/17 04:46 01/16/17 04:46 Assessment and Plan (1) CVA (cerebral vascular accident) Current visit: Yes Status: Acute Assessment and Plan: Impression: Recent CVA with expressive dysphasia and subjective feeling of left-sided weakness. Constipation Diabetes mellitus Type II, Recent A1c was 8.2%-blood sugars not to goal COPD-exacerbation Acute on chronic hypoxemic respiratory failure Hypokalemia Recent left knee contusion with left leg edema CHF, unknown EF Paroxysmal atrial fibrillation-anticoagulant therapy Sick sinus syndrome with placement of permanent pacemaker Hypertension Hyperlipidemia Obstructive sleep apnea-CPAP not effective per patient. Uses 3 L of oxygen at night Ascending aortic aneurysm-stable Spinal stenosis Essential tremor Chronic anemia, iron deficiency GERD History of colon cancer with resection and chemotherapy, no evidence of recurrence History of narcotic drug use Have independently interviewed and examined pt. Chart reviewed. Case discussed with my PA. Above care plan developed with my supervision; agree with above. Doing better today. Breathing feels easier-not needing oxygen. Still notes some chest congestion. No pain with breathing. Denies nausea. Tolerating therapy. Lung: decreased bilaterally. Shallow respirations. No crackles or wheeze. Breathing comfortably on RA. CV: irregularly irregular AB: soft nt/nd +BS MSE: awake alert appropriate Plan: Continue breathing treatments-encouraged pt to work on slow deep breathing activities. Metformin increased - monitor sugars. Encourage continued therapy to improve her functional status. Medically stable for IRU floor activities. Hospital Course Summary Disclaimer: The visit summary below is not to be considered part of the above Progress Note.
--- NOTE | 2017-01-18 12:10 | IRU Progress Note ---
- Subjective/Serverity of Illness Vijaya was evaluated in her room today. She does report dyspnea with activity but denies any cough. She was seen by Dr. Gambino. He did start some Mucinex DM. She was oriented recent a I did not realize that she was on both. We'll discontinue the Mucinex DM for the time being. She did have a bowel movement finally. Continues to be constipated she states but overall is improved. Images to demonstrate some expressive dysphagia. Swallowing is improved however. Neurologically she does have some suggestion of right facial droop. This does not appear to be new. Update on medical issues as follows: 1. 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 Her speech remains dysarthric. Swallowing is improved. She is followed by PT, OT and speech. She is improving with regard to swallowing. 2. Acute on chronic hypoxemic respiratory failure with saturations less than 90 % on room air in [place]. She remains on oxygen all night every night. She is currently on oxygen as well during the daytime which is a new development since being at home. Her saturations range between 90-95% on O2 (at 1-3 L/m per nasal cannula). She continues to require supplemental oxygen as needed but at the present time is on room air and seems to be doing well. 3. Reported congestive heart failure with uncertain ejection fraction. This is compensated. Her lungs are clear at the present time with diminished breath sounds. 4. COPD which is symptomatic. At home she is on as needed albuterol. Denies significant cough. Currently her lungs are clear. 5. Left knee contusion with left leg edema. This is symptomatic and will impact her therapy. She continues to have some discomfort in the left knee but it is improving. 6. Hypertension which has been under less control recently. 7. Diabetes mellitus type 2. Dr. Gambino did start metformin. Monitor blood sugars carefully. 8. Paroxysmal atrial fibrillation. Patient is on warfarin managed by pharmacy. Her INR is therapeutic at 2.5. Exam Vital Signs: Temperature 98.5 F 01/18/17 07:00 Pulse Rate 84 01/18/17 08:37 Respiratory Rate 16 01/18/17 11:19 Blood Pressure 129/70 01/18/17 07:00 Pulse Oximetry 94 01/18/17 07:00 Oxygen Delivery Method Room Air Oxygen Flow Rate 2 Fraction of Inspired Oxygen 90 Height/Weight/BMI: Height 1.68 m Weight 104.4 kg Body Mass Index 37.5 - Constitutional Present: no acute distress Comments: The patient is awake, alert and oriented and in no acute distress. She is cooperative. She does get dyspneic with activity. Pupils are equal. The neck is supple. Chest: Clear to auscultation bilaterally. Decreased breath sounds are noted. Cor: irregular rhythm with no gallop, click nor murmur. Somewhat distant heart sounds. Abd: soft with normo-active bowel sounds. There are no masses, no tenderness and no guarding. Extremities: No edema is noted. No cyanosis is noted. She is on room air at present. Neurologic: Has minimally reduced strength in the left upper extremity. Questionable right facial droop but not certain if this is her normal appearance or not. She has had this appearance ever since she has come in. May or may not be an objective finding. Does have some dysarthria when she speaks. Results IRU - Labs Labs: Blood sugars are reviewed and are sightly elevated. Metformin has been started. Oxygen saturations look good. Sepsis Assessment - Evaluation Sepsis screening result: No Definite Risk IRU A/P (1) CVA (cerebral vascular accident) Qualifiers: CVA mechanism: thrombosis Precerebral and cerebral artery: other cerebral artery Qualified Code(s): I63.39 - Cerebral infarction due to thrombosis of other cerebral artery Current visit: Yes Status: Acute Continues to cooperate with therapy and is improving. She is ambulating well. Working on ADLs. No new neurologic changes are noted at this time. Neurologic exam done today. (2) Episodic atrial fibrillation Current visit: Yes Status: Chronic INR is therapeutic at 2.55. She is asymptomatic. (3) COPD (chronic obstructive pulmonary disease) with emphysema Qualifiers: Emphysema type: unspecified Qualified Code(s): J43.9 - Emphysema, unspecified Current visit: Yes Status: Chronic Does have dyspnea with activity. No current cough. Denies any chest pain. Oxygen requirements are less. (4) Benign essential hypertension Current visit: Yes Status: Chronic (5) Acute respiratory failure with hypoxemia Current visit: Yes Status: Acute Able to maintain saturations above 90% on room air at present. (6) Diabetes mellitus type 2 in obese Current visit: Yes Status: Chronic Per hospitalists. Blood sugars running slightly higher than desired. Remains on metformin. (7) Contusion of knee, left Qualifiers: Encounter type: subsequent encounter Qualified Code(s): S80.02XD - Contusion of left knee, subsequent encounter Current visit: Yes Status: Acute DVT Prophylaxis: Coumadin Resuscitation Status: Do Not Resuscitate - Course Hospital Course: Camilo Rebolledo MD: 01/16/17 11:07 Patient continues to improve with therapies. She has respiratory limitation for exercise. Left knee hurts as well. She does not like the MiraLAX nor the pured diet. Continue OT, PT and speech therapy. Blood sugars running a bit elevated. Per hospitalists. 01/17/17 11:14 She is improving with regard to therapy. Requires oxygen supplementation. Has respiratory limitation to activity. Blood sugars are stable without evidence of hypoglycemia. 01/18/17 12:56 Blood sugars are elevated but stable. No hypoglycemia. She does have respiratory limitation activity but overall is improving. Ambulates reasonably well. No longer requires oxygen supplementation at least during the daytime. Prior to dismissal we will need to repeat her exercise oximetry. Did have a bowel movement. - Interventions to Obtain Goals PT Treatment Plan: Balance/Proprioception, Functional Activities, Gait Training , Patient/Family Education, Therapeutic Exercise OT Treatment Plan: ADL (Basic Care), Balance Training, Pt./Family Education, Ther. Exercise for ADL Goals Progress/Modifications: Careful neurologic exam today fails to reveal any new findings of a new stroke. Overall she is medically stable. She does have dyspnea with activity secondary to her COPD. Not currently requiring supplemental oxygen. She is improving with regard to bathing, lower extremity dressing and transfers.
[2017-01-18] MEDS: PROMETHAZINE 25 MG TABLET PO PRN (16:25)
[2017-01-18] MEDS: METFORMIN 500 MG TABLET PO SCH (17:53)
[2017-01-18] MEDS: FUROSEMIDE 40 MG TABLET PO SCH (17:56)
[2017-01-18] MEDS: MELATONIN 1 MG TABLET PO SCH (21:28)
[2017-01-18] MEDS: ATORVASTATIN 20 MG TABLET PO SCH (21:29)
[2017-01-18] MEDS: TRAZODONE 50 MG TABLET PO SCH (21:30)
[2017-01-18] MEDS: MIRTAZAPINE 15 MG TABLET PO SCH (21:36)
[2017-01-18] MEDS: FAMOTIDINE 20 MG TABLET PO SCH (21:41)
[2017-01-19] MEDS: ISOSORBIDE MONONITRATE ER 30 MG TABLET PO SCH ×3 (05:11→17:39)
[2017-01-19] MEDS: INSULIN ASPART 100unit/ml INJECTION SQ PRN (05:25)
[2017-01-19] MEDS: PROMETHAZINE 25 MG TABLET PO PRN (06:08)
[2017-01-19] MEDS: ALBUTEROL/IPRATROPIUM 2.5mg-0.5mg/3ml NEB AEROSOL SCH ×4 (07:20→19:59)
[2017-01-19] MEDS: BUDESONIDE INH.SOLN 0.5mg/2ml NEB AEROSOL SCH ×2 (07:21→19:58)
[2017-01-19] MEDS: FEXOFENADINE 180 MG TABLET PO SCH (09:04)
[2017-01-19] MEDS: LOSARTAN 100 MG TABLET PO SCH (09:05)
[2017-01-19] MEDS: GABAPENTIN 100 MG CAPSULE PO SCH (09:05)
[2017-01-19] MEDS: FERROUS SULFATE 324 MG TABLET PO SCH (09:06)
[2017-01-19] MEDS: Bisacodyl EC TAB 5 MG TABLET PO SCH (09:06)
[2017-01-19] MEDS: GUAIFENESIN LA 600 MG TABLET PO SCH ×2 (09:06→20:33)
[2017-01-19] MEDS: TRIHEXYPHENIDYL 2 MG TABLET PO SCH ×2 (09:06→20:31)
[2017-01-19] MEDS: FUROSEMIDE 80 MG TABLET PO SCH (09:06)
[2017-01-19] MEDS: SOTALOL 80 MG TABLET PO SCH ×3 (09:07→20:33)
[2017-01-19] MEDS: SENNA + DOCUSATE TABLET PO SCH (09:08)
[2017-01-19] MEDS: POLYETHYL GLYCOL 3350 17gm PACKET PO SCH (09:09)
[2017-01-19] MEDS: PRIMIDONE 50 MG TABLET PO SCH ×3 (09:09→20:34)
[2017-01-19] MEDS: SERTRALINE 100 MG TABLET PO SCH (09:12)
--- NOTE | 2017-01-19 10:24 | Pharmacy Consult ---
Pharmacy Consult-Warfarin - Laboratory Information 01/13/17 01/14/17 01/15/17 04:44 04:40 07:09 INR 3.14 H 2.19 H 1.99 H 01/16/17 01/17/17 01/18/17 04:46 04:29 05:04 INR 1.92 H 2.25 H 2.55 H 01/19/17 07:22 INR 2.45 H COUMADIN CONSULT: ALDO, a 76 yo female, was admitted to IRU for PT/OT for ADL's secondary to recent CVA. Comorbidities include COPD, HTN, CHF. Date INR Dose 01/13 3.14 No dose given 01/14 2.19 3 mg 01/15 1.98 4 mg 01/16 1.92 5 mg 01/17 2.25 5 mg 01/18 2.55 4 mg 01/19 2.54 Plan 5 mg Today's INR was 2.54. I will order Warfarin 5 mg today @ 1200. The Pharmacy will continue to monitor the INR's and adjust the dosage of the Coumadin accordingly. Thank you for the Warfarin Dosing Protocol, Jordy eCdeno, Pharmacist.
[2017-01-19] MEDS: ACETAMINOPHEN 325 MG TABLET PO PRN (10:32)
[2017-01-19] MEDS ORDERED: WARFARIN 5 MG TABLET PO SCH (12:00)
[2017-01-19] MEDS: FUROSEMIDE 40 MG TABLET PO SCH (17:39)
[2017-01-19] MEDS: METFORMIN 500 MG TABLET PO SCH (17:39)
--- NOTE | 2017-01-19 18:33 | Progress Note ---
Subjective: Patient seen today sitting in her bed. She states she still continues to have some breathing issues. She does think her breathing is definitely better since starting the breathing treatments. She does, however, feel that her breathing is labored. She has now had 2 bowel movements. No complaints other than her breathing at this time. Objective Vital signs: Temperature 98.4 F 01/19/17 15:58 Pulse Rate 71 01/19/17 15:58 Respiratory Rate 16 01/19/17 15:58 Blood Pressure 143/79 H 01/19/17 15:58 Pulse Oximetry 91 01/19/17 15:58 Patient not on oxygen at time of exam Height/Weight/BMI: Height 1.68 m Weight 104 kg Body Mass Index 37.5 - Constitutional Present: no acute distress, well nourished, well developed - Routine HEENT Exam Eye: Present: EOMI ENT: Present: mucous membranes moist - Routine Respiratory Exam Present: decreased breath sounds, distant breath sounds, diminished air movement. Absent: wheezes - Routine Cardiovascular Exam Present: RRR, murmur (grade 2) - Routine Abdominal Exam Present: soft, normoactive bowel sounds, non distended. Absent: tenderness - Routine Extremities Exam Present: normal capillary refill Comments: Swelling to left lower extremity is improving - Routine Skin Exam Present: dry, warm - Routine Neurological Exam Present: alert, oriented X3 - Routine Lymphatic Exam Lymphatic: Absent: adenopathy - Routine Psychiatric Exam Present: normal affect Results - Labs CBC & Chem 7: 01/16/17 04:46 01/16/17 04:46 Assessment and Plan (1) CVA (cerebral vascular accident) Current visit: Yes Status: Acute Assessment and Plan: Impression: Recent CVA with expressive dysphasia and subjective feeling of left-sided weakness. Constipation Diabetes mellitus Type II, Recent A1c was 8.2%-blood sugars not to goal COPD-exacerbation Acute on chronic hypoxemic respiratory failure Hypokalemia Recent left knee contusion with left leg edema CHF, unknown EF Paroxysmal atrial fibrillation-anticoagulant therapy Sick sinus syndrome with placement of permanent pacemaker Hypertension Hyperlipidemia Obstructive sleep apnea-CPAP not effective per patient. Uses 3 L of oxygen at night Ascending aortic aneurysm-stable Spinal stenosis Essential tremor Chronic anemia, iron deficiency GERD History of colon cancer with resection and chemotherapy, no evidence of recurrence History of narcotic drug use Plan: Continue breathing treatments, Acapella, etc. She will likely need nebulizer treatments versus inhalers [facility]. Blood sugars not to goal. Check BMP with recent initiation of metformin. If renal function is stable, consider increasing metformin dose. Continue bowel motivation Sepsis Assessment - Evaluation Sepsis screening result: No Definite Risk Hospital Course Summary Disclaimer: The visit summary below is not to be considered part of the above Progress Note. Hospital Course: 01/13/17 - Hospitalist Consult Agree with IRU admission for strengthening, ambulation and ADLs. As well as monitoring of neurologic changes, blood pressure, oxygen saturations, and blood sugars. Pharmacy will monitor her warfarin/INR. Expect the left knee should continue to improve with time. Monitor O2 sats, oxygen as needed to keep sats greater than 90%. She sleeps with 3 L. Duoneb treatments when necessary. Monitor blood pressures. Cardiac medications include clonidine, nifedipine, losartan, furosemide and potassium, sotalol, metoprolol, Imdur, and Lipitor. Confirmed patient's home medications with her [facility]. Recent A1c was 8.2, blood sugars ranging upper 100s to over 200 since admission. Start sliding scale insulin protocol and initiate metformin 500 mg daily. Monitor kidney function with initiation of metformin. 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 Poon, or have her establish as an OP after dismissal. Upon dismissal, patient's care will return to her PCP, Dr. Guillory. 01/15/17 Hyperglycemia - continue SSI; however, with fairly persistent elevated readings , suspect we will need to start a routine medication. She's had hypoglycemia in the past with metformin; with this knowledge our options are limited. Consider scheduled insulin - will discuss with attending. Check A1c. Decreased breath sounds; hx PAF; reported CHF with unknown EF - obtain 2 view CXR + EKG. Start monitoring weights. Takes Coumadin for PAF; INR 1.99 - pharmacy managing. Will give Lovenox today to bridge. Hypokalemia (mild) - recheck labs in am. Stroke - continue therapy and speech therapy. 01/17/17 Will start metformin 500 mg daily. If she tolerates this and continues to have high blood sugars will increase to twice a day. Exacerbation of COPD. Start routine DuoNeb and budesonide treatments. Acapella ordered. Mucinex DM twice a day. Brown cow now for constipation. If she has no results by this evening, nurses were instructed to give her PRN bisacodyl suppository. Start Senna plus twice a day routinely. She already has bisacodyl 5 mg by mouth ordered daily. Recommend she establish with kitchen worker after dismissal. 01/18/17 Continue bowel motivation. Utilize PRN milk of magnesia if she has no results within the next few hours. Continue DuoNeb and budesonide treatments. Continue to monitor O2 sats. Hopefully she'll be able to continue without oxygen throughout the day. She typically sleeps with 3 L of oxygen at night. Consider long-acting bronchodilator/steroid inhaler and/or anticholinergic inhaler on discharge. Blood sugars continue to be consistently elevated. Will increase metformin to 500 twice a day as she has tolerated initiation of once daily dosing. 01/19/17 Continue breathing treatments, Acapella, etc. She will likely need nebulizer treatments versus inhalers [facility]. Blood sugars not to goal. Check BMP with recent initiation of metformin. If renal function is stable, consider increasing metformin dose. Continue bowel motivation
[2017-01-19] MEDS: MELATONIN 1 MG TABLET PO SCH (20:31)
[2017-01-19] MEDS: TRAZODONE 50 MG TABLET PO SCH (20:32)
[2017-01-19] MEDS: ATORVASTATIN 20 MG TABLET PO SCH (20:33)
[2017-01-19] MEDS: FAMOTIDINE 20 MG TABLET PO SCH (20:34)
[2017-01-19] MEDS: MIRTAZAPINE 15 MG TABLET PO SCH (20:34)
[2017-01-20] MEDS: ISOSORBIDE MONONITRATE ER 30 MG TABLET PO SCH ×2 (05:35→17:51)
[2017-01-20] MEDS: ACETAMINOPHEN 325 MG TABLET PO PRN (05:42)
--- NOTE | 2017-01-20 07:33 | Pharmacy Consult ---
Pharmacy Consult-Warfarin - Laboratory Information 01/13/17 01/14/17 01/15/17 04:44 04:40 07:09 INR 3.14 H 2.19 H 1.99 H 01/16/17 01/17/17 01/18/17 04:46 04:29 05:04 INR 1.92 H 2.25 H 2.55 H 01/19/17 01/20/17 07:22 04:57 INR 2.45 H 2.79 H - Consult Information Will give warfarin 4 mg po today at noon. Thank you.
[2017-01-20] MEDS: ALBUTEROL/IPRATROPIUM 2.5mg-0.5mg/3ml NEB AEROSOL SCH ×4 (07:38→19:30)
[2017-01-20] MEDS: BUDESONIDE INH.SOLN 0.5mg/2ml NEB AEROSOL SCH ×2 (07:39→19:30)
[2017-01-20] MEDS: FERROUS SULFATE 324 MG TABLET PO SCH (08:51)
[2017-01-20] MEDS: LOSARTAN 100 MG TABLET PO SCH (08:52)
[2017-01-20] MEDS: SERTRALINE 100 MG TABLET PO SCH (08:52)
[2017-01-20] MEDS: Bisacodyl EC TAB 5 MG TABLET PO SCH (08:52)
[2017-01-20] MEDS: SOTALOL 80 MG TABLET PO SCH ×3 (08:52→21:32)
[2017-01-20] MEDS: TRIHEXYPHENIDYL 2 MG TABLET PO SCH ×2 (08:53→21:33)
[2017-01-20] MEDS: GABAPENTIN 100 MG CAPSULE PO SCH (08:55)
[2017-01-20] MEDS: PRIMIDONE 50 MG TABLET PO SCH ×3 (08:55→21:30)
[2017-01-20] MEDS: GUAIFENESIN LA 600 MG TABLET PO SCH ×2 (08:55→21:34)
[2017-01-20] MEDS: FEXOFENADINE 180 MG TABLET PO SCH (08:55)
[2017-01-20] MEDS: FUROSEMIDE 80 MG TABLET PO SCH (08:55)
[2017-01-20] MEDS: POLYETHYL GLYCOL 3350 17gm PACKET PO SCH (08:57)
[2017-01-20] MEDS: SENNA + DOCUSATE TABLET PO SCH ×3 (08:58→21:34)
--- NOTE | 2017-01-20 10:33 | IRU Progress Note ---
- Subjective/Serverity of Illness Vijaya continues to complain of being constipated despite the fact that she apparently is having at least 1 bowel movement daily. I was going to start living status but in view of this we will keep her on the MiraLAX on a daily basis. Continues to be limited somewhat by her breathing although she states that her breathing is improved. Denies any cough. Breathing treatments have helped she believes. She denies any chest pain. I have reviewed therapy notes in detail. She is improved in many areas. Particular with regard to lower extremity and approximately dressing she is improved. She is improved transfers. Ambulation is going well. She is walking variably with standby assistance versus modified independent. Distance is a bit reduced recently however. Update on medical issues as follows: 1. 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 Her speech remains dysarthric. Swallowing is improved. She is followed by PT, OT and speech. To my ear she is able to speak better. She is swallowing safely at present. 2. Acute on chronic hypoxemic respiratory failure with saturations less than 90 % on room air in [place]. She remains on oxygen all night every night. Saturations during the daytime are often in the 90s on room air. She occasionally requires supplemental oxygen. 3. Reported congestive heart failure with uncertain ejection fraction. This is compensated. Her lungs are clear at the present time with diminished breath sounds. Does have some dyspnea with activity which may be related either to the COPD or the heart failure. 4. COPD which is symptomatic. At home she is on as needed albuterol. Denies significant cough. Currently her lungs are clear. She is improved with regular breathing treatments here in the hospital. 5. Left knee contusion with left leg edema. This is symptomatic and will impact her therapy. She continues to have some discomfort in the left knee but it is improving. 6. Hypertension: Her blood pressures are improved in the 130 systolic range. 7. Diabetes mellitus type 2. We are continuing to monitor her blood sugars. She is on metformin. 8. Paroxysmal atrial fibrillation. Patient is on warfarin managed by pharmacy. Her INR is therapeutic at 2.79. No evidence of active bleeding.. Exam Vital Signs: Temperature 98.1 F 01/20/17 08:00 Pulse Rate 66 01/20/17 08:52 Respiratory Rate 20 01/20/17 08:00 Blood Pressure 135/91 H 01/20/17 08:00 Pulse Oximetry 95 01/20/17 08:00 Oxygen Delivery Method Room Air Oxygen Flow Rate 1 Fraction of Inspired Oxygen 90 Height/Weight/BMI: Height 1.68 m Weight 104.2 kg Body Mass Index 37.5 - Constitutional Present: no acute distress Comments: The patient is awake, alert and oriented and in no acute distress. She is pleasant and cooperative. Her speech is improved. She is swallowing safely. Pupils are equal. The neck is supple. Chest: Clear to auscultation bilaterally. No further wheezing noted. Does have diminished breath sounds. Cor: irregular rhythm with no gallop, click nor murmur Abd: soft with normo-active bowel sounds. There are no masses, no tenderness and no guarding. Extremities: No edema is noted. Strength appears to be reduced in the left upper extremity to a mild degree. Chain Pegger strength reduced at left hand was well. Results IRU - Labs Labs: Reviewed laboratory tests and hospitalist's notes. Sepsis Assessment - Evaluation Sepsis screening result: No Definite Risk IRU A/P (1) CVA (cerebral vascular accident) Qualifiers: CVA mechanism: thrombosis Precerebral and cerebral artery: other cerebral artery Qualified Code(s): I63.39 - Cerebral infarction due to thrombosis of other cerebral artery Current visit: Yes Status: Acute Has subjective and some objective weakness in the left upper extremity. Has dysarthria. Swallowing has improved. Continue working with physical therapy and speech therapy and occupational therapy. (2) Episodic atrial fibrillation Current visit: Yes Status: Chronic She is on warfarin with INR managed by pharmacy. Current INR is therapeutic at 2.79. Monitoring for evidence of bleeding and none is found at present. (3) COPD (chronic obstructive pulmonary disease) with emphysema Qualifiers: Emphysema type: unspecified Qualified Code(s): J43.9 - Emphysema, unspecified Current visit: Yes Status: Chronic This seems to be the primary impediment to improvement with regard to exercise tolerance/endurance. Continues to be short of breath with activity. No chest pain. Denies cough. She states that her breathing is improved with regular usage of breathing treatments. Her lungs are actually clear with diminished breath sounds. (4) Benign essential hypertension Current visit: Yes Status: Chronic Blood pressure assessment indicate significant improvement recently. (5) Acute respiratory failure with hypoxemia Current visit: Yes Status: Acute Uses oxygen all night every night. During the daytime her saturations are reasonably good on room air. Does require occasional additional oxygen supplementation during the daytime. (6) Diabetes mellitus type 2 in obese Current visit: Yes Status: Chronic Blood sugars are monitored and are in the 140 range. No evidence of hypoglycemia. Tolerating metformin well. (7) Contusion of knee, left Qualifiers: Encounter type: subsequent encounter Qualified Code(s): S80.02XD - Contusion of left knee, subsequent encounter Current visit: Yes Status: Acute DVT Prophylaxis: Coumadin Resuscitation Status: Do Not Resuscitate - Course Hospital Course: Camilo Rebolledo MD: 01/16/17 11:07 Patient continues to improve with therapies. She has respiratory limitation for exercise. Left knee hurts as well. She does not like the MiraLAX nor the pured diet. Continue OT, PT and speech therapy. Blood sugars running a bit elevated. Per hospitalists. 01/17/17 11:14 She is improving with regard to therapy. Requires oxygen supplementation. Has respiratory limitation to activity. Blood sugars are stable without evidence of hypoglycemia. 01/18/17 12:56 Blood sugars are elevated but stable. No hypoglycemia. She does have respiratory limitation activity but overall is improving. Ambulates reasonably well. No longer requires oxygen supplementation at least during the daytime. Prior to dismissal we will need to repeat her exercise oximetry. Did have a bowel movement. 01/20/17 10:37 She does continue to improve with therapies. Ambulatory ability is somewhat reduced. Barriers to progress include her dyspnea and reduced endurance. She is cooperative. Medical issues are monitored. Has therapeutic INR. - Interventions to Obtain Goals PT Treatment Plan: Balance/Proprioception, Functional Activities, Gait Training , Patient/Family Education, Therapeutic Exercise OT Treatment Plan: ADL (Basic Care), Balance Training, Pt./Family Education, Ther. Exercise for ADL Goals Progress/Modifications: Continue breathing treatments and monitoring of oxygen saturations in view of her acute on chronic hypoxemic respiratory failure. Barriers to dismissal include endurance. She is improving with therapy with regard to transfers, dressing. Anticipate she will be able to return home next week some time. Reassess on Monday.
[2017-01-20] MEDS ORDERED: WARFARIN 4 MG TABLET PO SCH (12:00)
--- NOTE | 2017-01-20 13:37 | Progress Note ---
<Xiomara Kirk V - Last Filed: 01/20/17 13:33> Subjective: Vijaya is seen and examined this morning in the dining room. She is alert and oriented during conversation. Her only concern/worry is her bowel movements. She states that she does feel constipated despite her daily bowel movements. Staff reports that on the she had to incontinent stools plus one normal stool. It is reported that she had a small bowel movement yesterday twice. No bowel movements yet today. He denies having any abdominal pain or nausea. Objective Vital signs: Temperature 98.1 F 01/20/17 08:00 Pulse Rate 66 01/20/17 08:52 Respiratory Rate 24 01/20/17 11:01 Blood Pressure 135/91 H 01/20/17 08:00 Pulse Oximetry 95 01/20/17 08:00 Oxygen Delivery Method Room Air Oxygen Flow Rate 1 Fraction of Inspired Oxygen 90 Height/Weight/BMI: Height 1.68 m Weight 104.2 kg Body Mass Index 37.5 - Constitutional Present: well nourished, well developed - Routine HEENT Exam Eye: Present: EOMI ENT: Present: mucous membranes moist, dentition normal - Routine Respiratory Exam Present: CTA bilaterally. Absent: wheezes - Routine Cardiovascular Exam Present: RRR, S1, S2, murmur - Routine Abdominal Exam Present: soft, normoactive bowel sounds, non distended. Absent: tenderness - Routine Extremities Exam Present: full ROM, normal capillary refill - Routine Back/Spine/Pelvis Exam Back/Spine: Present: full ROM - Routine Skin Exam Present: intact, dry, warm - Routine Neurological Exam Present: alert, oriented X3, CN II-XII intact - Routine Lymphatic Exam Lymphatic: Absent: adenopathy - Routine Psychiatric Exam Present: normal affect, normal thought process Results - Labs CBC & Chem 7: 01/20/17 04:57 01/20/17 04:57 Assessment and Plan (1) CVA (cerebral vascular accident) Current visit: Yes Status: Acute Assessment and Plan: Impression: Recent CVA with expressive dysphasia and subjective feeling of left-sided weakness. Constipation Diabetes mellitus Type II, Recent A1c was 8.2%-blood sugars not to goal COPD-exacerbation Acute on chronic hypoxemic respiratory failure Hypokalemia Recent left knee contusion with left leg edema CHF, unknown EF Paroxysmal atrial fibrillation-anticoagulant therapy Sick sinus syndrome with placement of permanent pacemaker Hypertension Hyperlipidemia Obstructive sleep apnea-CPAP not effective per patient. Uses 3 L of oxygen at night Ascending aortic aneurysm-stable Spinal stenosis Essential tremor Chronic anemia, iron deficiency GERD History of colon cancer with resection and chemotherapy, no evidence of recurrence History of narcotic drug use 01/20- Plan: Overall doing well. Continue to monitor bowel movements on current regimen, Dulcolax suppositories and milk of magnesia as needed Continue breathing treatments, Acapella. Remains stable on room air. Overall blood sugars appear to be well controlled. Fasting sugar this point was slightly elevated at 145. Continue on metformin CBC and BMP reviewed from this morning. All remained stable. Continue to encourage work with PT and OT for ongoing strengthening Sepsis Assessment - Evaluation Sepsis screening result: No Definite Risk Hospital Course Summary Disclaimer: The visit summary below is not to be considered part of the above Progress Note. Hospital Course: 01/13/17 - Hospitalist Consult Agree with IRU admission for strengthening, ambulation and ADLs. As well as monitoring of neurologic changes, blood pressure, oxygen saturations, and blood sugars. Pharmacy will monitor her warfarin/INR. Expect the left knee should continue to improve with time. Monitor O2 sats, oxygen as needed to keep sats greater than 90%. She sleeps with 3 L. Duoneb treatments when necessary. Monitor blood pressures. Cardiac medications include clonidine, nifedipine, losartan, furosemide and potassium, sotalol, metoprolol, Imdur, and Lipitor. Confirmed patient's home medications with her senior living [facility]. Recent A1c was 8.2, blood sugars ranging upper 100s to over 200 since admission. Start sliding scale insulin protocol and initiate metformin 500 mg daily. Monitor kidney function with initiation of metformin. 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 Poon, or have her establish as an OP after dismissal. Upon dismissal, patient's care will return to her PCP, Dr. Guillory. 01/15/17 Hyperglycemia - continue SSI; however, with fairly persistent elevated readings , suspect we will need to start a routine medication. She's had hypoglycemia in the past with metformin; with this knowledge our options are limited. Consider scheduled insulin - will discuss with attending. Check A1c. Decreased breath sounds; hx PAF; reported CHF with unknown EF - obtain 2 view CXR + EKG. Start monitoring weights. Takes Coumadin for PAF; INR 1.99 - pharmacy managing. Will give Lovenox today to bridge. Hypokalemia (mild) - recheck labs in am. Stroke - continue therapy and speech therapy. 01/17/17 Will start metformin 500 mg daily. If she tolerates this and continues to have high blood sugars will increase to twice a day. Exacerbation of COPD. Start routine DuoNeb and budesonide treatments. Acapella ordered. Mucinex DM twice a day. Brown cow now for constipation. If she has no results by this evening, nurses were instructed to give her PRN bisacodyl suppository. Start Senna plus twice a day routinely. She already has bisacodyl 5 mg by mouth ordered daily. Recommend she establish with car greaser after dismissal. 01/18/17 Continue bowel motivation. Utilize PRN milk of magnesia if she has no results within the next few hours. Continue DuoNeb and budesonide treatments. Continue to monitor O2 sats. Hopefully she'll be able to continue without oxygen throughout the day. She typically sleeps with 3 L of oxygen at night. Consider long-acting bronchodilator/steroid inhaler and/or anticholinergic inhaler on discharge. Blood sugars continue to be consistently elevated. Will increase metformin to 500 twice a day as she has tolerated initiation of once daily dosing. 01/19/17 Continue breathing treatments, Acapella, etc. She will likely need nebulizer treatments versus inhalers when she returns to the senior living. Blood sugars not to goal. Check BMP with recent initiation of metformin. If renal function is stable, consider increasing metformin dose. Continue bowel motivation 01/20- Plan: Overall doing well. Continue to monitor bowel movements on current regimen, Dulcolax suppositories and milk of magnesia as needed Continue breathing treatments, Acapella. Remains stable on room air. Overall blood sugars appear to be well controlled. Fasting sugar this point was slightly elevated at 145. Continue on metformin CBC and BMP reviewed from this morning. All remained stable. Continue to encourage work with PT and OT for ongoing strengthening <Paulo Chester - Last Filed: 01/20/17 16:58> Objective Vital signs: Temperature 98.6 F 01/20/17 15:50 Pulse Rate 68 01/20/17 15:50 Respiratory Rate 24 01/20/17 15:50 Blood Pressure 138/81 01/20/17 15:50 Pulse Oximetry 94 01/20/17 15:50 Oxygen Delivery Method Room Air Oxygen Flow Rate 1 Fraction of Inspired Oxygen 90 Height/Weight/BMI: Height 1.68 m Weight 104.2 kg Body Mass Index 37.5 Results - Labs CBC & Chem 7: 01/20/17 04:57 01/20/17 04:57 Assessment and Plan (1) CVA (cerebral vascular accident) Current visit: Yes Status: Acute Assessment and Plan: Impression: Recent CVA with expressive dysphasia and subjective feeling of left-sided weakness. Constipation Diabetes mellitus Type II, Recent A1c was 8.2%-blood sugars not to goal COPD-exacerbation Acute on chronic hypoxemic respiratory failure Hypokalemia Recent left knee contusion with left leg edema CHF, unknown EF Paroxysmal atrial fibrillation-anticoagulant therapy Sick sinus syndrome with placement of permanent pacemaker Hypertension Hyperlipidemia Obstructive sleep apnea-CPAP not effective per patient. Uses 3 L of oxygen at night Ascending aortic aneurysm-stable Spinal stenosis Essential tremor Chronic anemia, iron deficiency GERD History of colon cancer with resection and chemotherapy, no evidence of recurrence History of narcotic drug use Have independently interviewed and examined pt. Chart reviewed. 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 Above care plan developed with my supervision; agree with above. Doing well this evening. Breathing okay-notes some SOA and congestion. No pain with breathing. Not needing O2. Eating well. Tolerating therapy. Lungs: decreased, no distress CV: regular AB: soft nt/nd +BS Plan: Continue with IRU to maximize strength and functional status. Continue with breathing treatment and acapella for pulm toilet. Continue metformin for glycemic control. Lab check and stable. Encourage therapy to maximize strength and functional status. Medically stable for IRU floor care and activities. Hospital Course Summary Disclaimer: The visit summary below is not to be considered part of the above Progress Note.
[2017-01-20] MEDS: FUROSEMIDE 40 MG TABLET PO SCH (15:45)
[2017-01-20] MEDS: INSULIN ASPART 100unit/ml INJECTION SQ PRN ×2 (17:50→21:53)
[2017-01-20] MEDS: METFORMIN 500 MG TABLET PO SCH (17:51)
[2017-01-20] MEDS: ATORVASTATIN 20 MG TABLET PO SCH (21:30)
[2017-01-20] MEDS: MELATONIN 1 MG TABLET PO SCH (21:32)
[2017-01-20] MEDS: TRAZODONE 50 MG TABLET PO SCH (21:32)
[2017-01-20] MEDS: MIRTAZAPINE 15 MG TABLET PO SCH (21:33)
[2017-01-20] MEDS: FAMOTIDINE 20 MG TABLET PO SCH (21:35)
[2017-01-21] MEDS: ISOSORBIDE MONONITRATE ER 30 MG TABLET PO SCH ×2 (05:52→21:32)
[2017-01-21] MEDS: PROMETHAZINE 25 MG TABLET PO PRN (06:07)
[2017-01-21] MEDS: INSULIN ASPART 100unit/ml INJECTION SQ PRN ×2 (06:50→23:48)
[2017-01-21] MEDS ORDERED: LINACLOTIDE 145 MCG CAPSULE PO SCH (07:30)
[2017-01-21] MEDS: ALBUTEROL/IPRATROPIUM 2.5mg-0.5mg/3ml NEB AEROSOL SCH ×4 (07:33→21:27)
--- NOTE | 2017-01-21 08:38 | Pharmacy Consult ---
Pharmacy Consult-Warfarin - Laboratory Information 01/13/17 01/14/17 01/15/17 04:44 04:40 07:09 INR 3.14 H 2.19 H 1.99 H 01/16/17 01/17/17 01/18/17 04:46 04:29 05:04 INR 1.92 H 2.25 H 2.55 H 01/19/17 01/20/17 01/21/17 07:22 04:57 04:33 INR 2.45 H 2.79 H 2.93 H - Consult Information Will give warfarin 4mg po today at [facility]. Thank you.
[2017-01-21] MEDS: FERROUS SULFATE 324 MG TABLET PO SCH (09:13)
[2017-01-21] MEDS: SENNA + DOCUSATE TABLET PO SCH ×2 (09:15→21:28)
[2017-01-21] MEDS: SERTRALINE 100 MG TABLET PO SCH (09:15)
[2017-01-21] MEDS: LOSARTAN 100 MG TABLET PO SCH (09:15)
[2017-01-21] MEDS: SOTALOL 80 MG TABLET PO SCH ×3 (09:15→21:41)
[2017-01-21] MEDS: GABAPENTIN 100 MG CAPSULE PO SCH (09:15)
[2017-01-21] MEDS: FEXOFENADINE 180 MG TABLET PO SCH (09:16)
[2017-01-21] MEDS: FUROSEMIDE 80 MG TABLET PO SCH (09:17)
[2017-01-21] MEDS: Bisacodyl EC TAB 5 MG TABLET PO SCH (09:18)
[2017-01-21] MEDS: TRIHEXYPHENIDYL 2 MG TABLET PO SCH ×2 (09:18→21:40)
[2017-01-21] MEDS: PRIMIDONE 50 MG TABLET PO SCH ×3 (09:19→21:44)
[2017-01-21] MEDS: GUAIFENESIN LA 600 MG TABLET PO SCH ×2 (09:19→21:44)
[2017-01-21] MEDS: POLYETHYL GLYCOL 3350 17gm PACKET PO SCH (09:19)
[2017-01-21] MEDS ORDERED: FALL RISK - PHARMACY CONSULT MC PRN (11:21)
[2017-01-21] MEDS ORDERED: WARFARIN 4 MG TABLET PO SCH (12:00)
[2017-01-21] MEDS: BUDESONIDE INH.SOLN 0.5mg/2ml NEB AEROSOL SCH ×2 (14:53→21:27)
[2017-01-21] MEDS: FUROSEMIDE 40 MG TABLET PO SCH (21:37)
[2017-01-21] MEDS: METFORMIN 500 MG TABLET PO SCH (21:37)
[2017-01-21] MEDS: TRAZODONE 50 MG TABLET PO SCH (21:42)
[2017-01-21] MEDS: ATORVASTATIN 20 MG TABLET PO SCH (21:43)
[2017-01-21] MEDS: MELATONIN 1 MG TABLET PO SCH (21:44)
[2017-01-21] MEDS: MIRTAZAPINE 15 MG TABLET PO SCH (21:45)
[2017-01-21] MEDS: FAMOTIDINE 20 MG TABLET PO SCH (21:45)
[2017-01-22] MEDS: ALBUTEROL/IPRATROPIUM 2.5mg-0.5mg/3ml NEB AEROSOL SCH ×3 (07:30→20:42)
[2017-01-22] MEDS: BUDESONIDE INH.SOLN 0.5mg/2ml NEB AEROSOL SCH ×2 (07:30→20:40)
[2017-01-22] MEDS: ISOSORBIDE MONONITRATE ER 30 MG TABLET PO SCH ×2 (08:15→17:26)
[2017-01-22] MEDS: SERTRALINE 100 MG TABLET PO SCH (09:03)
[2017-01-22] MEDS: GUAIFENESIN LA 600 MG TABLET PO SCH ×2 (09:03→21:35)
[2017-01-22] MEDS: FUROSEMIDE 80 MG TABLET PO SCH (09:04)
[2017-01-22] MEDS: LOSARTAN 100 MG TABLET PO SCH (09:04)
[2017-01-22] MEDS: FEXOFENADINE 180 MG TABLET PO SCH (09:04)
[2017-01-22] MEDS: PRIMIDONE 50 MG TABLET PO SCH ×3 (09:05→21:34)
[2017-01-22] MEDS: GABAPENTIN 100 MG CAPSULE PO SCH (09:05)
[2017-01-22] MEDS: TRIHEXYPHENIDYL 2 MG TABLET PO SCH ×2 (09:05→21:34)
[2017-01-22] MEDS: SOTALOL 80 MG TABLET PO SCH ×3 (09:06→21:32)
[2017-01-22] MEDS: PROMETHAZINE 25 MG TABLET PO PRN (09:08)
--- NOTE | 2017-01-22 09:09 | Pharmacy Consult ---
Pharmacy Consult-Warfarin - Laboratory Information 01/13/17 01/14/17 01/15/17 04:44 04:40 07:09 INR 3.14 H 2.19 H 1.99 H 01/16/17 01/17/17 01/18/17 04:46 04:29 05:04 INR 1.92 H 2.25 H 2.55 H 01/19/17 01/20/17 01/21/17 07:22 04:57 04:33 INR 2.45 H 2.79 H 2.93 H 01/22/17 04:22 INR 2.36 H - Consult Information Ordered warfarin 5mg po at noon today. Will continue to monitor. Thank you.
[2017-01-22] MEDS: FERROUS SULFATE 324 MG TABLET PO SCH (09:10)
[2017-01-22] MEDS ORDERED: WARFARIN 5 MG TABLET PO SCH (12:00)
[2017-01-22] MEDS: INSULIN ASPART 100unit/ml INJECTION SQ PRN ×3 (12:36→21:47)
[2017-01-22] MEDS: SENNA + DOCUSATE TABLET PO SCH ×2 (15:35→23:41)
[2017-01-22] MEDS: POLYETHYL GLYCOL 3350 17gm PACKET PO SCH (15:35)
[2017-01-22] MEDS: Bisacodyl EC TAB 5 MG TABLET PO SCH (15:35)
--- NOTE | 2017-01-22 15:52 | Progress Note ---
Subjective: Vijaya is seen today in follow up. She is lying down, but is alert. She was able to participate with dietary staff to order meals. She reports that she had a "large stool" yesterday "On the way from dining room to my room" (suspect incontinence). She does have documented urinary incontinence. She denies pain or any other concerns. Objective Vital signs: Temperature 96.5 F L 01/22/17 07:00 Pulse Rate 71 01/22/17 09:06 Respiratory Rate 16 01/22/17 11:20 Blood Pressure 148/78 H 01/22/17 07:00 Pulse Oximetry 92 01/22/17 11:20 Oxygen Delivery Method Room Air Oxygen Flow Rate 1 Fraction of Inspired Oxygen 90 Height/Weight/BMI: Height 1.68 m Weight 104.1 kg Body Mass Index 37.5 - Constitutional Present: no acute distress, moderate distress, well nourished, well developed, obese - Routine HEENT Exam Head: Present: normocephalic, atraumatic Eye: Present: EOMI, PERRL ENT: Present: mucous membranes moist - Routine Respiratory Exam Present: CTA bilaterally. Absent: dyspnea, rales, rhonchi, wheezes, crackles - Routine Cardiovascular Exam Present: RRR, S1, S2, no murmur - Routine Abdominal Exam Present: soft, normoactive bowel sounds, non distended, non tender - Routine Extremities Exam Present: no edema, non tender - Routine Musculoskeletal Exam Musculoskeletal: Present: no joint swelling, no tenderness - Routine Skin Exam Present: intact, dry, warm - Routine Neurological Exam Present: alert, moving all extremities - Routine Psychiatric Exam Present: cooperative Results - Labs CBC & Chem 7: 01/20/17 04:57 01/20/17 04:57 Assessment and Plan (1) CVA (cerebral vascular accident) Current visit: Yes Status: Acute DVT Prophylaxis: Coumadin Resuscitation Status: Do Not Resuscitate Assessment and Plan: Impression: Recent CVA with expressive dysphasia and subjective feeling of left-sided weakness. Constipation Diabetes mellitus Type II, Recent A1c was 8.2%-blood sugars not to goal COPD-exacerbation Acute on chronic hypoxemic respiratory failure Hypokalemia Recent left knee contusion with left leg edema CHF, unknown EF Paroxysmal atrial fibrillation-anticoagulant therapy Sick sinus syndrome with placement of permanent pacemaker Hypertension Hyperlipidemia Obstructive sleep apnea-CPAP not effective per patient. Uses 3 L of oxygen at night Ascending aortic aneurysm-stable Spinal stenosis Essential tremor Chronic anemia, iron deficiency GERD History of colon cancer with resection and chemotherapy, no evidence of recurrence History of narcotic drug use Plan: Patient is doing well overall. Continue PT/OT/ST per rehab team. BP is marginally high- avoid excessive lowering given recent stroke. Currently on Clonidine/Metoprolol/Procardia/Lasix/Imdur/Sotalol/Losartan. May need to try and narrow medication list as much as she can tolerate. Continue rate control and anticoagulation for pAFib. Pharmacy managing INR. Urinary and fecal incontinence noted. Will repeat labs in AM for stability. Chart is reviewed for collateral information. - Time spent with patient 25 - 35 minutes Sepsis Assessment - Evaluation Sepsis screening result: No Definite Risk Hospital Course Summary Disclaimer: The visit summary below is not to be considered part of the above Progress Note. Hospital Course: 01/13/17 - Hospitalist Consult Agree with IRU admission for strengthening, ambulation and ADLs. As well as monitoring of neurologic changes, blood pressure, oxygen saturations, and blood sugars. Pharmacy will monitor her warfarin/INR. Expect the left knee should continue to improve with time. Monitor O2 sats, oxygen as needed to keep sats greater than 90%. She sleeps with 3 L. Duoneb treatments when necessary. Monitor blood pressures. Cardiac medications include clonidine, nifedipine, losartan, furosemide and potassium, sotalol, metoprolol, Imdur, and Lipitor. Confirmed patient's home medications with her [facility]. Recent A1c was 8.2, blood sugars ranging upper 100s to over 200 since admission. Start sliding scale insulin protocol and initiate metformin 500 mg daily. Monitor kidney function with initiation of metformin. 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 Poon, or have her establish as an OP after dismissal. Upon dismissal, patient's care will return to her PCP, Dr. Guillory. 01/15/17 Hyperglycemia - continue SSI; however, with fairly persistent elevated readings , suspect we will need to start a routine medication. She's had hypoglycemia in the past with metformin; with this knowledge our options are limited. Consider scheduled insulin - will discuss with attending. Check A1c. Decreased breath sounds; hx PAF; reported CHF with unknown EF - obtain 2 view CXR + EKG. Start monitoring weights. Takes Coumadin for PAF; INR 1.99 - pharmacy managing. Will give Lovenox today to bridge. Hypokalemia (mild) - recheck labs in am. Stroke - continue therapy and speech therapy. 01/17/17 Will start metformin 500 mg daily. If she tolerates this and continues to have high blood sugars will increase to twice a day. Exacerbation of COPD. Start routine DuoNeb and budesonide treatments. Acapella ordered. Mucinex DM twice a day. Brown cow now for constipation. If she has no results by this evening, nurses were instructed to give her PRN bisacodyl suppository. Start Senna plus twice a day routinely. She already has bisacodyl 5 mg by mouth ordered daily. Recommend she establish with orange picker machine operator after dismissal. 01/18/17 Continue bowel motivation. Utilize PRN milk of magnesia if she has no results within the next few hours. Continue DuoNeb and budesonide treatments. Continue to monitor O2 sats. Hopefully she'll be able to continue without oxygen throughout the day. She typically sleeps with 3 L of oxygen at night. Consider long-acting bronchodilator/steroid inhaler and/or anticholinergic inhaler on discharge. Blood sugars continue to be consistently elevated. Will increase metformin to 500 twice a day as she has tolerated initiation of once daily dosing. 01/19/17 Continue breathing treatments, Acapella, etc. She will likely need nebulizer treatments versus inhalers when she returns to the [facility]. Blood sugars not to goal. Check BMP with recent initiation of metformin. If renal function is stable, consider increasing metformin dose. Continue bowel motivation 01/20- Plan: Overall doing well. Continue to monitor bowel movements on current regimen, Dulcolax suppositories and milk of magnesia as needed Continue breathing treatments, Acapella. Remains stable on room air. Overall blood sugars appear to be well controlled. Fasting sugar this point was slightly elevated at 145. Continue on metformin CBC and BMP reviewed from this morning. All remained stable. Continue to encourage work with PT and OT for ongoing strengthening 01/22/17 15:58 Patient is doing well overall. Continue PT/OT/ST per rehab team. BP is marginally high- avoid excessive lowering given recent stroke. Currently on Clonidine/Metoprolol/Procardia/Lasix/Imdur/Sotalol/Losartan. May need to try and narrow medication list as much as she can tolerate. Continue rate control and anticoagulation for pAFib. Pharmacy managing INR. Urinary and fecal incontinence noted. Will repeat labs in AM for stability. Chart is reviewed for collateral information.
[2017-01-22] MEDS: FUROSEMIDE 40 MG TABLET PO SCH (17:25)
[2017-01-22] MEDS: METFORMIN 500 MG TABLET PO SCH (17:27)
[2017-01-22] MEDS: ALBUTEROL/IPRATROPIUM 2.5mg-0.5mg/3ml NEB AEROSOL PRN (20:40)
[2017-01-22] MEDS: MIRTAZAPINE 15 MG TABLET PO SCH (21:33)
[2017-01-22] MEDS: TRAZODONE 50 MG TABLET PO SCH (21:33)
[2017-01-22] MEDS: ATORVASTATIN 20 MG TABLET PO SCH (21:35)
[2017-01-22] MEDS: FAMOTIDINE 20 MG TABLET PO SCH (21:35)
[2017-01-22] MEDS: MELATONIN 1 MG TABLET PO SCH (21:37)
[2017-01-22] MEDS ORDERED: FALL RISK - PHARMACY CONSULT MC PRN (21:38)
[2017-01-23] MEDS: ISOSORBIDE MONONITRATE ER 30 MG TABLET PO SCH ×2 (06:44→17:41)
[2017-01-23] MEDS: ALBUTEROL/IPRATROPIUM 2.5mg-0.5mg/3ml NEB AEROSOL PRN ×3 (07:33→20:23)
--- NOTE | 2017-01-23 07:54 | Pharmacy Consult ---
Pharmacy Consult-Warfarin - Laboratory Information 01/13/17 01/14/17 01/15/17 04:44 04:40 07:09 INR 3.14 H 2.19 H 1.99 H 01/16/17 01/17/17 01/18/17 04:46 04:29 05:04 INR 1.92 H 2.25 H 2.55 H 01/19/17 01/20/17 01/21/17 07:22 04:57 04:33 INR 2.45 H 2.79 H 2.93 H 01/22/17 01/23/17 04:22 04:12 INR 2.36 H 2.56 H - Consult Information Ordered warfarin 5mg po today at noon. Will continue to follow. Thank you.
[2017-01-23] MEDS: FERROUS SULFATE 324 MG TABLET PO SCH (08:57)
[2017-01-23] MEDS: FEXOFENADINE 180 MG TABLET PO SCH (08:58)
[2017-01-23] MEDS: TRIHEXYPHENIDYL 2 MG TABLET PO SCH ×2 (08:59→20:05)
[2017-01-23] MEDS: LOSARTAN 100 MG TABLET PO SCH (08:59)
[2017-01-23] MEDS: Bisacodyl EC TAB 5 MG TABLET PO SCH (09:03)
[2017-01-23] MEDS: FUROSEMIDE 80 MG TABLET PO SCH (09:03)
[2017-01-23] MEDS: POLYETHYL GLYCOL 3350 17gm PACKET PO SCH (09:03)
[2017-01-23] MEDS: GUAIFENESIN LA 600 MG TABLET PO SCH ×2 (09:03→20:06)
[2017-01-23] MEDS: GABAPENTIN 100 MG CAPSULE PO SCH (09:04)
[2017-01-23] MEDS: PRIMIDONE 50 MG TABLET PO SCH ×3 (09:04→20:03)
[2017-01-23] MEDS: SENNA + DOCUSATE TABLET PO SCH ×2 (09:06→20:07)
[2017-01-23] MEDS: SERTRALINE 100 MG TABLET PO SCH (09:06)
[2017-01-23] MEDS: SOTALOL 80 MG TABLET PO SCH ×3 (09:10→20:08)
[2017-01-23] MEDS: FLUTICASONE NASAL SPRAY 50mcg EA NOSTRIL SCH ×2 (10:12→10:51)
[2017-01-23] MEDS ORDERED: WARFARIN 5 MG TABLET PO SCH (12:00)
--- NOTE | 2017-01-23 13:20 | Fluoroscopy Report ---
Indication:Dysphagia Procedure:FL barium swallow modified MODIFIED BAR. SWALLOW STUDY: Videofluoroscopy was performed in conjunction with a retention representative from speech pathology and a separate report and recommendations will be provided. Varying gradations of barium from thin to solid were administered. Tracheal penetration was noted with thin and nectar consistencies. There was no aspiration noted with any of the consistencies. On the AP view the bolus showed no obvious preference for either side. Impression: Tracheal penetration with thin and nectar consistencies. No aspiration seen. Please see the speech pathology report for additional details and recommendations. Fluoroscopy dose: 4.17 mGy (Cumulative air kerma) Anil Cary RPA/INEZ performed this under my direct supervision. .
[2017-01-23] MEDS: FUROSEMIDE 40 MG TABLET PO SCH (15:32)
[2017-01-23] MEDS: INSULIN ASPART 100unit/ml INJECTION SQ PRN (17:39)
[2017-01-23] MEDS: METFORMIN 500 MG TABLET PO SCH (17:40)
[2017-01-23] MEDS: ATORVASTATIN 20 MG TABLET PO SCH (20:08)
[2017-01-23] MEDS: MELATONIN 1 MG TABLET PO SCH (20:13)
[2017-01-23] MEDS: TRAZODONE 50 MG TABLET PO SCH (20:13)
[2017-01-23] MEDS: MIRTAZAPINE 15 MG TABLET PO SCH (20:14)
[2017-01-23] MEDS: FAMOTIDINE 20 MG TABLET PO SCH (20:14)
[2017-01-23] MEDS: BUDESONIDE INH.SOLN 0.5mg/2ml NEB AEROSOL SCH (20:23)
[2017-01-24] MEDS: ISOSORBIDE MONONITRATE ER 30 MG TABLET PO SCH ×2 (05:39→18:35)
[2017-01-24] MEDS: INSULIN ASPART 100unit/ml INJECTION SQ PRN ×4 (05:44→20:18)
[2017-01-24] MEDS: ALBUTEROL/IPRATROPIUM 2.5mg-0.5mg/3ml NEB AEROSOL SCH ×5 (07:15→20:20)
[2017-01-24] MEDS: BUDESONIDE INH.SOLN 0.5mg/2ml NEB AEROSOL SCH ×3 (07:15→20:19)
[2017-01-24] MEDS: PROMETHAZINE 25 MG TABLET PO PRN (07:41)
--- NOTE | 2017-01-24 08:30 | Pharmacy Consult ---
Pharmacy Consult-Warfarin - Laboratory Information 01/13/17 01/14/17 01/15/17 04:44 04:40 07:09 INR 3.14 H 2.19 H 1.99 H 01/16/17 01/17/17 01/18/17 04:46 04:29 05:04 INR 1.92 H 2.25 H 2.55 H 01/19/17 01/20/17 01/21/17 07:22 04:57 04:33 INR 2.45 H 2.79 H 2.93 H 01/22/17 01/23/17 01/24/17 04:22 04:12 04:54 INR 2.36 H 2.56 H 2.45 H COUMADIN CONSULT: ALDO, a 76 yo female, was admitted to IRU for PT/OT for ADL's secondary to recent CVA. Comorbidities include COPD, HTN, CHF. Date INR Dose 01/13 3.14 No dose given 01/14 2.19 3 mg 01/15 1.98 4 mg 01/16 1.92 5 mg 01/17 2.25 5 mg 01/18 2.55 4 mg 01/19 2.54 5 mg 01/20 2.79 4 mg 01/21 2.98 4 mg 01/22 2.36 5 mg 01/23 2.56 5 mg 01/24 2.45 Plan 5 mg daily Today's INR was 2.45. I changed the warfarin to 5 mg daily @ 1200. I also changed the INR to Monday and . The Pharmacy will continue to monitor the INR's and adjust the dosage of the Coumadin accordingly. Thank you for the Warfarin Dosing Protocol, Jordy Cedeno, Pharmacist.
[2017-01-24] MEDS: FUROSEMIDE 80 MG TABLET PO SCH (08:31)
[2017-01-24] MEDS: PRIMIDONE 50 MG TABLET PO SCH ×3 (08:31→20:10)
[2017-01-24] MEDS: GUAIFENESIN LA 600 MG TABLET PO SCH ×2 (08:32→20:10)
[2017-01-24] MEDS: SOTALOL 80 MG TABLET PO SCH ×3 (08:32→20:07)
[2017-01-24] MEDS: LOSARTAN 100 MG TABLET PO SCH (08:33)
[2017-01-24] MEDS: Bisacodyl EC TAB 5 MG TABLET PO SCH (08:34)
[2017-01-24] MEDS: TRIHEXYPHENIDYL 2 MG TABLET PO SCH ×2 (08:34→20:06)
[2017-01-24] MEDS: FERROUS SULFATE 324 MG TABLET PO SCH (08:34)
[2017-01-24] MEDS: GABAPENTIN 100 MG CAPSULE PO SCH (08:35)
[2017-01-24] MEDS: FEXOFENADINE 180 MG TABLET PO SCH (08:35)
[2017-01-24] MEDS: SENNA + DOCUSATE TABLET PO SCH ×2 (08:36→20:15)
[2017-01-24] MEDS: SERTRALINE 100 MG TABLET PO SCH (08:37)
[2017-01-24] MEDS: POLYETHYL GLYCOL 3350 17gm PACKET PO SCH (08:41)
[2017-01-24] MEDS: FLUTICASONE NASAL SPRAY 50mcg EA NOSTRIL SCH (08:42)
--- NOTE | 2017-01-24 10:54 | Progress Note ---
<Georgette Ayala - Last Filed: 01/24/17 10:51> Subjective: Patient is seen today sitting in the dining room for breakfast. Overall she reports she is doing well, except she has not a bowel movement in 2 days. She prefers not to use milk of magnesia. She would like to try suppository. She does not complain of pain. Reports rehabilitation is going well. She feels her lungs have improved since starting the breathing treatments. Objective Vital signs: Temperature 98.5 F 01/24/17 07:00 Pulse Rate 72 01/24/17 08:32 Respiratory Rate 20 01/24/17 07:20 Blood Pressure 149/77 H 01/24/17 07:00 Pulse Oximetry 92 01/24/17 07:20 Height/Weight/BMI: Height 1.68 m Weight 102.8 kg Body Mass Index 37.5 - Constitutional Present: no acute distress, well nourished, well developed, obese - Routine HEENT Exam Head: Present: normocephalic, atraumatic ENT: Present: mucous membranes moist, dentition normal - Routine Respiratory Exam Present: CTA bilaterally. Absent: wheezes - Routine Cardiovascular Exam Present: RRR, S1, S2. Absent: murmur - Routine Abdominal Exam Present: soft, non distended. Absent: tenderness - Routine Extremities Exam Present: edema (1+ to the left. This is improving. She had fall prior to admission on the left knee.), no edema (right lower extremity), normal capillary refill - Routine Skin Exam Present: dry, warm - Routine Neurological Exam Present: alert, moving all extremities, facial asymmetry (this is chronic for patient.) - Routine Lymphatic Exam Lymphatic: Absent: adenopathy - Routine Psychiatric Exam Present: normal affect, cooperative Results - Labs CBC & Chem 7: 01/23/17 04:12 01/23/17 04:12 Assessment and Plan (1) CVA (cerebral vascular accident) Current visit: Yes Status: Acute Assessment and Plan: Impression: Recent CVA with expressive dysphasia and subjective feeling of left-sided weakness. Constipation Diabetes mellitus Type II, Recent A1c was 8.2%- COPD Acute on chronic hypoxemic respiratory failure Hypokalemia Recent left knee contusion with left leg edema CHF, unknown EF Paroxysmal atrial fibrillation-anticoagulant therapy Sick sinus syndrome with placement of permanent pacemaker Hypertension Hyperlipidemia Obstructive sleep apnea-CPAP not effective per patient. Uses 3 L of oxygen at night Ascending aortic aneurysm-stable Spinal stenosis Essential tremor Chronic anemia, iron deficiency GERD History of colon cancer with resection and chemotherapy, no evidence of recurrence History of narcotic drug use Plan: Will have nursing give suppository to motivate bowels. BMP in a.m. to follow her hypokalemia and renal function as she continues on Lasix and potassium supplementation Continue DuoNeb and budesonide nebulizer treatments-will plan to send her home on this regimen. Continue to monitor blood sugars. At this point, sugars are reasonably controlled on metformin once a day. Patient would like to get scheduled with a automotive shop foreman as her previous automotive shop foreman retired. Will go ahead and get her set up for an outpatient consultation to get established once she is out of rehabilitation. Nurse to schedule patient with automotive shop foreman of patient's choice. She will also get name of previous automotive shop foreman so records may be sent to her new automotive shop foreman. Sepsis Assessment - Evaluation Sepsis screening result: No Definite Risk Hospital Course Summary Disclaimer: The visit summary below is not to be considered part of the above Progress Note. Hospital Course: 01/13/17 - Hospitalist Consult Agree with IRU admission for strengthening, ambulation and ADLs. As well as monitoring of neurologic changes, blood pressure, oxygen saturations, and blood sugars. Pharmacy will monitor her warfarin/INR. Expect the left knee should continue to improve with time. Monitor O2 sats, oxygen as needed to keep sats greater than 90%. She sleeps with 3 L. Duoneb treatments when necessary. Monitor blood pressures. Cardiac medications include clonidine, nifedipine, losartan, furosemide and potassium, sotalol, metoprolol, Imdur, and Lipitor. Confirmed patient's home medications with her assisted MAR. Recent A1c was 8.2, blood sugars ranging upper 100s to over 200 since admission. Start sliding scale insulin protocol and initiate metformin 500 mg daily. Monitor kidney function with initiation of metformin. 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 Upon dismissal, patient's care will return to her PCP, Dr. Guillory. 01/15/17 Hyperglycemia - continue SSI; however, with fairly persistent elevated readings , suspect we will need to start a routine medication. She's had hypoglycemia in the past with metformin; with this knowledge our options are limited. Consider scheduled insulin - will discuss with attending. Check A1c. Decreased breath sounds; hx PAF; reported CHF with unknown EF - obtain 2 view CXR + EKG. Start monitoring weights. Takes Coumadin for PAF; INR 1.99 - pharmacy managing. Will give Lovenox today to bridge. Hypokalemia (mild) - recheck labs in am. Stroke - continue therapy and speech therapy. 01/17/17 Will start metformin 500 mg daily. If she tolerates this and continues to have high blood sugars will increase to twice a day. Exacerbation of COPD. Start routine DuoNeb and budesonide treatments. Acapella ordered. Mucinex DM twice a day. Brown cow now for constipation. If she has no results by this evening, nurses were instructed to give her PRN bisacodyl suppository. Start Senna plus twice a day routinely. She already has bisacodyl 5 mg by mouth ordered daily. Recommend she establish with automotive shop foreman after dismissal. 01/18/17 Continue bowel motivation. Utilize PRN milk of magnesia if she has no results within the next few hours. Continue DuoNeb and budesonide treatments. Continue to monitor O2 sats. Hopefully she'll be able to continue without oxygen throughout the day. She typically sleeps with 3 L of oxygen at night. Consider long-acting bronchodilator/steroid inhaler and/or anticholinergic inhaler on discharge. Blood sugars continue to be consistently elevated. Will increase metformin to 500 twice a day as she has tolerated initiation of once daily dosing. 01/19/17 Continue breathing treatments, Acapella, etc. She will likely need nebulizer treatments versus inhalers when she returns to the assisted. Blood sugars not to goal. Check BMP with recent initiation of metformin. If renal function is stable, consider increasing metformin dose. Continue bowel motivation 01/20- Plan: Overall doing well. Continue to monitor bowel movements on current regimen, Dulcolax suppositories and milk of magnesia as needed Continue breathing treatments, Acapella. Remains stable on room air. Overall blood sugars appear to be well controlled. Fasting sugar this point was slightly elevated at 145. Continue on metformin CBC and BMP reviewed from this morning. All remained stable. Continue to encourage work with PT and OT for ongoing strengthening 01/22/17 15:58 Patient is doing well overall. Continue PT/OT/ST per rehab team. BP is marginally high- avoid excessive lowering given recent stroke. Currently on Clonidine/Metoprolol/Procardia/Lasix/Imdur/Sotalol/Losartan. May need to try and narrow medication list as much as she can tolerate. Continue rate control and anticoagulation for pAFib. Pharmacy managing INR. Urinary and fecal incontinence noted. Will repeat labs in AM for stability. Chart is reviewed for collateral information. <Eri Valle - Last Filed: 01/24/17 21:05> Objective Vital signs: Temperature 98.2 F 01/24/17 20:04 Pulse Rate 69 01/24/17 20:04 Respiratory Rate 16 01/24/17 20:20 Blood Pressure 137/81 01/24/17 20:04 Pulse Oximetry 91 01/24/17 20:04 Oxygen Delivery Method Nasal Cannula Oxygen Flow Rate 1 Fraction of Inspired Oxygen 90 Height/Weight/BMI: Height 1.68 m Weight 102.8 kg Body Mass Index 37.5 Results - Labs CBC & Chem 7: 01/23/17 04:12 01/23/17 04:12 Assessment and Plan (1) CVA (cerebral vascular accident) Current visit: Yes Status: Acute Assessment and Plan: I have independently evaluated and examined this patient. I reviewed the chart, the patient's history, and the SUGAR CANE PLANTER MACHINE OPERATOR/PA's documented findings as above. We discussed and formulated the assessment and plan as above with additions as below: Patient reports she is doing well and anxious to discharge back to [facility] tomorrow. She had no immediate concerns at the time of my assessment. Mild right nasolabial fold flattening on examination. Respirations nonlabored, good airflow No tremor present at time of exam. INR therapeutic, blood sugars generally adequately controlled. No contraindication to discharge as planned. Hospital Course Summary Disclaimer: The visit summary below is not to be considered part of the above Progress Note.
[2017-01-24] MEDS: WARFARIN 5 MG TABLET PO SCH (12:09)
--- NOTE | 2017-01-24 14:28 | IRU Team Meeting ---
IRU Team Meeting - Nursing Vital Signs: Vital Signs - 24 hr 01/23/17 15:00 01/23/17 15:33 01/23/17 20:01 Temperature 97.7 F 97.8 F Pulse Rate 65 65 67 Respiratory Rate 18 16 Blood Pressure 153/82 H 133/92 H Pulse Oximetry 91 95 01/23/17 20:23 01/24/17 07:00 01/24/17 07:20 Temperature 98.5 F Pulse Rate 66 Respiratory Rate 18 20 20 Blood Pressure 149/77 H Pulse Oximetry 95 92 01/24/17 08:32 01/24/17 12:49 Temperature Pulse Rate 72 Respiratory Rate 20 Blood Pressure Pulse Oximetry Current Medications: Acetaminophen (Tylenol) 650 mg PO Q4H PRN PRN Reason: pain Last Admin: 01/20/17 05:42 Dose: 650 mg Albuterol Sulfate (Ventolin Hfa) 2 puff INH Q4H PRN PRN Reason: Shortness of air/wheezing Albuterol/Ipratropium (Duoneb) 3 ml AEROSOL RTQID [facility] Last Admin: 01/24/17 12:49 Dose: 3 ml Albuterol/Ipratropium (Duoneb) 3 ml AEROSOL TID PRN PRN Reason: Wheezing Last Admin: 01/23/17 20:23 Dose: 3 ml Atorvastatin Calcium (Lipitor) 20 mg PO 2100 [facility] Last Admin: 01/23/17 20:08 Dose: 20 mg Bisacodyl (Dulcolax) 5 mg PO DAILY [facility] Last Admin: 01/24/17 08:34 Dose: 5 mg Bisacodyl (Dulcolax) 10 mg RECTALLY DAILY PRN PRN Reason: Constipation Last Admin: 01/17/17 13:35 Dose: 10 mg Budesonide (Pulmicort Inhalation) 0.5 mg AEROSOL RTBID [facility] Last Admin: 01/24/17 07:19 Dose: 0.5 mg Clonidine HCl (Catapres) 0.3 mg PO TID [facility] Last Admin: 01/24/17 08:32 Dose: 0.3 mg Dextrose (D50%W) 20 ml IVP PRN PRN PRN Reason: Hypoglycemia Famotidine (Pepcid) 20 mg PO 2100 [facility] Last Admin: 01/23/17 20:14 Dose: 20 mg Ferrous Sulfate (Feosol) 324 mg PO WB [facility] Last Admin: 01/24/17 08:34 Dose: 324 mg Fexofenadine HCl (Lauren) 180 mg PO DAILY [facility] Last Admin: 01/24/17 08:35 Dose: 180 mg Fluticasone Propionate (Flonase) 2 spray EA NOSTRIL DAILY [facility] Last Admin: 01/24/17 08:42 Dose: 2 spray Furosemide (Lasix) 40 mg PO 1600 [facility] Last Admin: 01/23/17 15:32 Dose: 40 mg Furosemide (Lasix) 80 mg PO DAILY [facility] Last Admin: 01/24/17 08:31 Dose: 80 mg Gabapentin (Neurontin) 200 mg PO DAILY [facility] Last Admin: 01/24/17 08:35 Dose: 200 mg Glucose (Glutose 15) 37.5 gm PO PRN PRN PRN Reason: Hypoglycemia Guaifenesin (Mucinex La) 600 mg PO BID [facility] Last Admin: 01/24/17 08:32 Dose: 600 mg Insulin Aspart (Novolog) 0 unit SQ SS PRN; Protocol PRN Reason: Hyperglycemia Last Admin: 01/24/17 12:09 Dose: 1 unit Isosorbide Mononitrate (Imdur) 15 mg PO ACBID [facility] Last Admin: 01/24/17 05:39 Dose: 15 mg Losartan Potassium (Cozaar) 100 mg PO DAILY [facility] Last Admin: 01/24/17 08:33 Dose: 100 mg Magnesium Hydroxide (Mom) 30 ml PO DAILY PRN PRN Reason: Constipation Last Admin: 01/18/17 12:33 Dose: 30 ml Meclizine HCl (Antivert) 12.5 mg PO Q6H PRN PRN Reason: Dizziness Melatonin (Melatonin) 3 mg PO 2100 [facility] Last Admin: 01/23/17 20:13 Dose: 3 mg Metformin HCl (Glucophage) 500 mg PO WS [facility] Last Admin: 01/23/17 17:40 Dose: 500 mg Metoprolol Succinate (Toprol Xl) 50 mg PO DAILY [facility] Last Admin: 01/24/17 08:36 Dose: 50 mg Miconazole Nitrate (Desenex) 1 applic TP BID PRN PRN Reason: treatment or pervention of inf Last Admin: 01/15/17 11:44 Dose: 1 applic Mirtazapine (Remeron) 7.5 mg PO 2100 [facility] Last Admin: 08/21/17 20:14 Dose: 7.5 mg Nifedipine (Procardia Xl) 90 mg PO DAILY [facility] Last Admin: 01/24/17 08:37 Dose: 90 mg Polyethylene Glycol (Miralax) 17 gm PO DAILY [facility] Last Admin: 01/24/17 08:41 Dose: 17 gm Potassium Chloride (K-Dur) 20 meq PO WMHS [facility] Last Admin: 01/24/17 12:09 Dose: 20 meq Primidone (Mysoline) 25 mg PO TID [facility] Last Admin: 01/24/17 08:31 Dose: 25 mg Promethazine HCl (Phenergan Tab) 25 mg PO Q6H PRN Last Admin: 01/24/17 07:41 Dose: 25 mg Senna/Docusate Sodium (Senna Plus Tablet) 2 tab PO BID [facility] Last Admin: 01/24/17 08:36 Dose: 2 tab Sertraline HCl (Zoloft) 100 mg PO DAILY [facility] Last Admin: 01/24/17 08:37 Dose: 100 mg Sotalol HCl (Betapace) 40 mg PO TID [facility] Last Admin: 01/24/17 08:32 Dose: 40 mg Trazodone HCl (Desyrel) 50 mg PO 2100 [facility] Last Admin: 01/23/17 20:13 Dose: 50 mg Trihexyphenidyl HCl (Artane) 1 mg PO BID [facility] Last Admin: 01/24/17 08:34 Dose: 1 mg Warfarin Sodium (Coumadin Protocol) 1 MC NOTE [facility] Warfarin Sodium (Coumadin) 5 mg PO NOON [facility] Last Admin: 01/24/17 12:09 Dose: 5 mg - Physical Therapy Sit to Stand Chair Transfer Ability: Stand By Assist/Supervision Stand to Sit Chair Transfer Ability: Stand By Assist/Supervision - Occupational Therapy Eating Ability: Stand By Assist/Supervision Grooming Ability: Modified Independent Bathing Ability: Minimal Assistance Upper Body Dressing Ability: Modified Independent - Care Plan Anticipated Length of Stay: 2 (days) Anticipated DC Destination: Snf/Facility (Still using O2)
[2017-01-24] MEDS: FUROSEMIDE 40 MG TABLET PO SCH (15:20)
--- NOTE | 2017-01-24 15:20 | IRU Progress Note ---
- Subjective/Serverity of Illness Overall improving. Plan is for discharge back to the [facility] [[email or web address] Exam Vital Signs: Temperature 98.5 F 01/24/17 07:00 Pulse Rate 72 01/24/17 08:32 Respiratory Rate 18 01/24/17 14:47 Blood Pressure 149/77 H 01/24/17 07:00 Pulse Oximetry 92 01/24/17 07:20 Oxygen Delivery Method Room Air Oxygen Flow Rate 1 Fraction of Inspired Oxygen 90 Height/Weight/BMI: Height 1.68 m Weight 102.8 kg Body Mass Index 37.5 - Constitutional Present: no acute distress Sepsis Assessment - Evaluation Sepsis screening result: No Definite Risk IRU A/P DVT Prophylaxis: Coumadin Resuscitation Status: Do Not Resuscitate - Course Hospital Course: Camilo Rebolledo MD: 01/16/17 11:07 Patient continues to improve with therapies. She has respiratory limitation for exercise. Left knee hurts as well. She does not like the MiraLAX nor the pured diet. Continue OT, PT and speech therapy. Blood sugars running a bit elevated. Per hospitalists. 01/17/17 11:14 She is improving with regard to therapy. Requires oxygen supplementation. Has respiratory limitation to activity. Blood sugars are stable without evidence of hypoglycemia. 01/18/17 12:56 Blood sugars are elevated but stable. No hypoglycemia. She does have respiratory limitation activity but overall is improving. Ambulates reasonably well. No longer requires oxygen supplementation at least during the daytime. Prior to dismissal we will need to repeat her exercise oximetry. Did have a bowel movement. 01/20/17 10:37 She does continue to improve with therapies. Ambulatory ability is somewhat reduced. Barriers to progress include her dyspnea and reduced endurance. She is cooperative. Medical issues are monitored. Has therapeutic INR. - Interventions to Obtain Goals PT Treatment Plan: Balance/Proprioception, Functional Activities, Gait Training , Patient/Family Education, Therapeutic Exercise OT Treatment Plan: ADL (Basic Care), Balance Training, Pt./Family Education, Ther. Exercise for ADL Goals Progress/Modifications: Please refer to Dr. Rebolledo's last note. No real changes other than the patient has improved should be ready for discharge
[2017-01-24] MEDS: BISACODYL 10 MG SUPPOSITORY RECTALLY PRN (15:26)
[2017-01-24] MEDS: METFORMIN 500 MG TABLET PO SCH (18:35)
[2017-01-24] MEDS: TRAZODONE 50 MG TABLET PO SCH (20:08)
[2017-01-24] MEDS: ATORVASTATIN 20 MG TABLET PO SCH (20:09)
[2017-01-24] MEDS: MELATONIN 1 MG TABLET PO SCH (20:10)
[2017-01-24] MEDS: FAMOTIDINE 20 MG TABLET PO SCH (20:11)
[2017-01-24] MEDS: MIRTAZAPINE 15 MG TABLET PO SCH (20:11)
[2017-01-25] MEDS: ISOSORBIDE MONONITRATE ER 30 MG TABLET PO SCH (06:29)
[2017-01-25] MEDS: PROMETHAZINE 25 MG TABLET PO PRN (06:29)
[2017-01-25] MEDS: BUDESONIDE INH.SOLN 0.5mg/2ml NEB AEROSOL SCH (07:10)
[2017-01-25 07:51] VITALS: BP 151/90; RESP 18; TEMP 98.1; O2SAT 95
[2017-01-25] MEDS: FERROUS SULFATE 324 MG TABLET PO SCH (08:02)
[2017-01-25] MEDS: GABAPENTIN 100 MG CAPSULE PO SCH (08:02)
[2017-01-25] MEDS: POLYETHYL GLYCOL 3350 17gm PACKET PO SCH (08:02)
[2017-01-25] MEDS: SOTALOL 80 MG TABLET PO SCH (08:03)
[2017-01-25] MEDS: GUAIFENESIN LA 600 MG TABLET PO SCH (08:04)
[2017-01-25] MEDS: LOSARTAN 100 MG TABLET PO SCH (08:04)
[2017-01-25] MEDS: Bisacodyl EC TAB 5 MG TABLET PO SCH (08:04)
[2017-01-25] MEDS: SERTRALINE 100 MG TABLET PO SCH (08:05)
[2017-01-25] MEDS: FUROSEMIDE 80 MG TABLET PO SCH (08:05)
[2017-01-25] MEDS: PRIMIDONE 50 MG TABLET PO SCH (08:05)
[2017-01-25] MEDS: TRIHEXYPHENIDYL 2 MG TABLET PO SCH (08:06)
[2017-01-25] MEDS: FEXOFENADINE 180 MG TABLET PO SCH (08:06)
[2017-01-25] MEDS: SENNA + DOCUSATE TABLET PO SCH (08:07)
[2017-01-25 08:08] VITALS: PULSE 72
[2017-01-25] MEDS: FLUTICASONE NASAL SPRAY 50mcg EA NOSTRIL SCH (08:08)
[2017-01-25] MEDS ORDERED: ALBUTEROL/IPRATROPIUM 2.5mg-0.5mg/3ml NEB AEROSOL SCH (09:00)
--- NOTE | 2017-01-25 10:08 | Discharge Instructions ---
Discharge Plan - Med Rec/Dispo Referrals/Follow Up: Laney Guillory MD [Family Provider] - (Dr. Ellen Guillory will see patient on rounds at the facility for Hosp. follow-up. .) Gabino Poon MD [Physician] - (Dr. Scott Poon on 02/10/17 at 9:40 am to get established. . [facility] [address] [place] [address] [place] [address] Please bring Insurance cards, Photo I.D., and all Medications.) Additional Instructions: Will need INR on (or around) February 01 with results to go to Dr. Guillory. Needs BMP in 2 weeks to follow potassium New meds: Duoneb breathing treatment Budesonide breathing treatment Flonase metformin warfarin 4mg M,TH 5mg T,W,F,S,S new dose for patient. Prescriptions: New Albuterol/Ipratropium [Duoneb] 3 ml AEROSOL TID #90 neb Fluticasone Nasal [place] [Flonase] 2 spray EA NOSTRIL DAILY bottle Warfarin [Coumadin] 4 mg PO 1700 #30 tab Warfarin [Coumadin] 5 mg PO 1700 #30 tab Budesonide Inhalation [Pulmicort Inhalation] 0.5 mg AEROSOL RTBID vial Metformin [Glucophage] 500 mg PO WS tablet Continue Isosorbide Mononitrate [Isosorbide Mononitrate ER] 0.5 tab PO BID #0 Furosemide 1 tab PO DAILY #0 Famotidine [Pepcid] 20 mg PO DAILY Meclizine [Antivert] 1 tab PO Q6HPRN PRN PRN Reason: Dizziness Polyethylene Glycol 3350 [Miralax] 17 gm PO DAILY Guaifenesin LA [Mucinex LA] 600 mg PO [id number] PRN PRN Reason: Congestion Albuterol Sulfate [Proair Hfa] 2 puff INH Q4H PRN PRN Reason: Shortness Of Air/Wheezing Benzonatate 200 mg PO Q6HPRN PRN PRN Reason: coughing Furosemide [Lasix] 80 mg PO DAILY Mirtazapine 7.5 mg PO HS Trazodone [Desyrel] 50 mg PO HS Primidone [Mysoline] 25 mg PO TID Acetaminophen 650 mg PO Q4HPRN PRN PRN Reason: pain Acetaminophen 650 mg PO TID Metoprolol Succinate (Xl) [Toprol Xl] 50 mg PO DAILY Atorvastatin Calcium 20 mg PO DAILY Fexofenadine HCl 180 mg PO DAILY Miconazole Nitrate [Miconazorb AF] 1 applic TP BID PRN PRN Reason: treatment or pervention of inf Bisacodyl [Dulcolax] 1 tab PO DAILY #0 tab Sertraline HCl 1 tab PO DAILY #0 Losartan Potassium 1 tab PO DAILY #0 Potassium Chloride 20 meq PO QID #0 tab cloNIDine HCl [Clonidine HCl] 1 tab PO TID #0 tab Sotalol HCl [Sotalol] 0.5 tab PO TID #0 tab Melatonin 6 mg PO DAILY #0 Ondansetron Tab [Zofran Po] 4 mg PO Q4HR PRN PRN Reason: Nausea Albuterol Neb (0.083%) [Proventil Neb (0.083%)] 2.5 mg AEROSOL Q2HPRN PRN PRN Reason: Shortness Of Air Trihexyphenidyl [Artane] 0.5 tab PO BID Gabapentin [Neurontin] 200 mg PO DAILY NIFEdipine [Nifedipine ER] 90 mg PO DAILY Ferrous Sulfate 325 mg PO DAILY Discontinued Warfarin Sodium 6 mg PO Q2D #0 tab Warfarin Sodium [Coumadin] 3 mg PO Q2D #0 tab Ondansetron Tab [Zofran Po] 4 mg PO DAILY
[2017-01-25] MEDS: INSULIN ASPART 100unit/ml INJECTION SQ PRN (11:19)
[2017-01-25] MEDS: WARFARIN 5 MG TABLET PO SCH (12:07)
--- NOTE | 2017-01-25 13:31 | Discharge Instructions ---
Discharge Plan - Med Rec/Dispo Referrals/Follow Up: Gabino Poon MD [Physician] - (Dr. Scott Poon on 02/10/17 at 9:40 am to get established. . [facility] [address] [place] [address] [place] [address] Please bring Insurance cards, Photo I.D., and all Medications.) Laney Guillory MD [Family Provider] - (Dr. Ellen Guillory will see patient on rounds at the facility for Hosp. follow-up. .) Additional Instructions: Will need INR on (or around) February 01 with results to go to Dr. Guillory. Needs BMP in 2 weeks to follow potassium New meds: Duoneb breathing treatment Budesonide breathing treatment Flonase metformin warfarin 4mg M,TH 5mg T,W,F,S,S new dose for patient. Prescriptions: New Albuterol/Ipratropium [Duoneb] 3 ml AEROSOL TID #90 neb Fluticasone Nasal [place] [Flonase] 2 spray EA NOSTRIL DAILY bottle Warfarin [Coumadin] 4 mg PO 1700 #30 tab Warfarin [Coumadin] 5 mg PO 1700 #30 tab Budesonide Inhalation [Pulmicort Inhalation] 0.5 mg AEROSOL RTBID vial Metformin [Glucophage] 500 mg PO WS tablet Continue Isosorbide Mononitrate [Isosorbide Mononitrate ER] 0.5 tab PO BID #0 Furosemide 1 tab PO DAILY #0 Famotidine [Pepcid] 20 mg PO DAILY Meclizine [Antivert] 1 tab PO Q6HPRN PRN PRN Reason: Dizziness Polyethylene Glycol 3350 [Miralax] 17 gm PO DAILY Guaifenesin LA [Mucinex LA] 600 mg PO [id number] PRN PRN Reason: Congestion Albuterol Sulfate [Proair Hfa] 2 puff INH Q4H PRN PRN Reason: Shortness Of Air/Wheezing Benzonatate 200 mg PO Q6HPRN PRN PRN Reason: coughing Furosemide [Lasix] 80 mg PO DAILY Mirtazapine 7.5 mg PO HS Trazodone [Desyrel] 50 mg PO HS Primidone [Mysoline] 25 mg PO TID Acetaminophen 650 mg PO Q4HPRN PRN PRN Reason: pain Acetaminophen 650 mg PO TID Metoprolol Succinate (Xl) [Toprol Xl] 50 mg PO DAILY Atorvastatin Calcium 20 mg PO DAILY Fexofenadine HCl 180 mg PO DAILY Miconazole Nitrate [Miconazorb AF] 1 applic TP BID PRN PRN Reason: treatment or pervention of inf Bisacodyl [Dulcolax] 1 tab PO DAILY #0 tab Sertraline HCl 1 tab PO DAILY #0 Losartan Potassium 1 tab PO DAILY #0 Potassium Chloride 20 meq PO QID #0 tab cloNIDine HCl [Clonidine HCl] 1 tab PO TID #0 tab Sotalol HCl [Sotalol] 0.5 tab PO TID #0 tab Melatonin 6 mg PO DAILY #0 Ondansetron Tab [Zofran Po] 4 mg PO Q4HR PRN PRN Reason: Nausea Albuterol Neb (0.083%) [Proventil Neb (0.083%)] 2.5 mg AEROSOL Q2HPRN PRN PRN Reason: Shortness Of Air Trihexyphenidyl [Artane] 0.5 tab PO BID Gabapentin [Neurontin] 200 mg PO DAILY NIFEdipine [Nifedipine ER] 90 mg PO DAILY Ferrous Sulfate 325 mg PO DAILY Discontinued Warfarin Sodium 6 mg PO Q2D #0 tab Warfarin Sodium [Coumadin] 3 mg PO Q2D #0 tab Ondansetron Tab [Zofran Po] 4 mg PO DAILY Discharge Instructions/Outpatient Orders: Final Provider Discharge Instructions Location: Determined By Patient - Disposition [facility] ([facility])
--- NOTE | 2017-01-25 13:38 | Extended Care Facility Orders ---
Admission Orders Admit to:: [facility]iary Allergies/Adverse Reactions: Allergies codeine Allergy (Unknown, Verified 01/12/17 19:47) ITCH NSAIDS (Non-Steroidal Anti-Inflamma Allergy (Unknown, Verified 01/12/17 19:47) hydrocodone [From Lortab] Adverse Reaction (Intermediate, Verified 01/12/17 19: 47) Blister acetaminophen [From Darvocet-N] Adverse Reaction (Mild, Verified 01/12/17 19:47) Itching propoxyphene [From Darvocet-N] Adverse Reaction (Mild, Verified 01/12/17 19:47) Itching hydrocodone bit Allergy (Unknown, Uncoded 03/22/15 18:50) ITCH propoxyphene napsylate Allergy (Unknown, Uncoded 03/22/15 18:50) RASH zolpidem tartrate Allergy (Unknown, Uncoded 03/22/15 18:50) MENTAL STATUS CHANGES Admitting Diagnosis: CVA Admitting Physician: Camilo Rebolledo MD Attending Physician: Camilo Rebolledo MD Code Status: Do Not Resuscitate Anticiapted Length of Stay: 30 days or less Rehab Potential: fair Rehab Prognosis: fair Diet: 01/23/17 Lunch Consistent Carbohydrate Diet [DIET] Calorie Level: 2000 Fluid Consistency: REGLIQU Food Consistency: MECSOF Comment: [employer] May use Facility Protocol or Standing Orders: Yes May have flu vaccine: Yes Evaluations/Treatment: Speech, PT, OT Penitentiary Certification: I certify that SNF services are required to be given on an Inpatient basis because of the patients need for correction care on a continuing basis for the condition(s) for which he/she received inpatient hospital services prior to his/her transfer to the SNF. SNF inpatient care is necessary for the following reasons Indication for Penitentiary: Neuro Assessment, Assess Anticoagulation Therapy - Additional Information In Event of Arrest: Do Not Start CPR Resident is Aware of Diagnosis: Yes Referrals: Gabino Poon MD [Physician] - (Dr. Scott Poon on 02/10/17 at 9:40 am to get established. . [facility] [address] [place] [address] [place] [address] Please bring Insurance cards, Photo I.D., and all Medications.) Laney Guillory MD [Family Provider] - (Dr. Ellen Guillory will see patient on rounds at the facility for Hosp. follow-up. .)
--- NOTE | 2017-01-25 13:45 | Discharge Summary ---
Discharge Information Date of admission: 01/12/17 14:30 Anticipated date of discharge: 01/25/17 Attending Physician: Camilo Rebolledo MD Primary care physician: Laney Guillory MD Consults: 01/12/17 Pharmacy Consult [CONS] Routine Pharmacy Consult: Coumadin/Warfarin Comment: INR was over three today in [place] 01/12/17 15:44 Physician Consult [CONS] Routine Consulting Provider: Jennifer Malhotra Reason For Exam: Medical management Ordering Provider has Notified Branch Manager: No 01/25/17 13:34 Doctor [Physician Consult] [CONS] Routine Consulting Provider: [facility] Reason For Exam: CONTINUITY OF CARE Ordering Provider has Notified Branch Manager: Yes - Laboratory Labs: 01/23/17 04:12 01/25/17 05:17 History of Present Illness HPI: 01/25/17 13:45 This patient was admitted to the rehabilitation unit with trouble speaking and weakness on the left side. She took a fall at her apartment at the [facility] on January 07. The next day she was noted to have some slurred speech. She did not receive TPA. She was found to have bilateral basal ganglia lacunar infarcts. She did develop expressive dysphasia and weakness on the left side. She does have history of COPD and atrial fibrillation has been on anticoagulants. In the rehabilitation unit she has improved her ability to walk. She is being transfered to the [facility] longterm unit. Hospital Course This is a general summary of the patient's hospital course. For more details refer to the complete medical record. Hospital course: 01/13/17 - Hospitalist Consult Agree with IRU admission for strengthening, ambulation and ADLs. As well as monitoring of neurologic changes, blood pressure, oxygen saturations, and blood sugars. Pharmacy will monitor her warfarin/INR. Expect the left knee should continue to improve with time. Monitor O2 sats, oxygen as needed to keep sats greater than 90%. She sleeps with 3 L. Duoneb treatments when necessary. Monitor blood pressures. Cardiac medications include clonidine, nifedipine, losartan, furosemide and potassium, sotalol, metoprolol, Imdur, and Lipitor. Confirmed patient's home medications with her [facility] MAR. Recent A1c was 8.2, blood sugars ranging upper 100s to over 200 since admission. Start sliding scale insulin protocol and initiate metformin 500 mg daily. Monitor kidney function with initiation of metformin. 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 Poon, or have her establish as an OP after dismissal. Upon dismissal, patient's care will return to her PCP, Dr. Guillory. 01/15/17 Hyperglycemia - continue SSI; however, with fairly persistent elevated readings , suspect we will need to start a routine medication. She's had hypoglycemia in the past with metformin; with this knowledge our options are limited. Consider scheduled insulin - will discuss with attending. Check A1c. Decreased breath sounds; hx PAF; reported CHF with unknown EF - obtain 2 view CXR + EKG. Start monitoring weights. Takes Coumadin for PAF; INR 1.99 - pharmacy managing. Will give Lovenox today to bridge. Hypokalemia (mild) - recheck labs in am. Stroke - continue therapy and speech therapy. 01/17/17 Will start metformin 500 mg daily. If she tolerates this and continues to have high blood sugars will increase to twice a day. Exacerbation of COPD. Start routine DuoNeb and budesonide treatments. Acapella ordered. Mucinex DM twice a day. Brown cow now for constipation. If she has no results by this evening, nurses were instructed to give her PRN bisacodyl suppository. Start Senna plus twice a day routinely. She already has bisacodyl 5 mg by mouth ordered daily. Recommend she establish with dry wall finisher after dismissal. 01/18/17 Continue bowel motivation. Utilize PRN milk of magnesia if she has no results within the next few hours. Continue DuoNeb and budesonide treatments. Continue to monitor O2 sats. Hopefully she'll be able to continue without oxygen throughout the day. She typically sleeps with 3 L of oxygen at night. Consider long-acting bronchodilator/steroid inhaler and/or anticholinergic inhaler on discharge. Blood sugars continue to be consistently elevated. Will increase metformin to 500 twice a day as she has tolerated initiation of once daily dosing. 01/19/17 Continue breathing treatments, Acapella, etc. She will likely need nebulizer treatments versus inhalers when [facility] the [facility]. Blood sugars not to goal. Check BMP with recent initiation of metformin. If renal function is stable, consider increasing metformin dose. Continue bowel motivation 01/20- Plan: Overall doing well. Continue to monitor bowel movements on current regimen, Dulcolax suppositories and milk of magnesia as needed Continue breathing treatments, Acapella. Remains stable on room air. Overall blood sugars appear to be well controlled. Fasting sugar this point was slightly elevated at 145. Continue on metformin CBC and BMP reviewed from this morning. All remained stable. Continue to encourage work with PT and OT for ongoing strengthening 01/22/17 15:58 Patient is doing well overall. Continue PT/OT/ST per rehab team. BP is marginally high- avoid excessive lowering given recent stroke. Currently on Clonidine/Metoprolol/Procardia/Lasix/Imdur/Sotalol/Losartan. May need to try and narrow medication list as much as she can tolerate. Continue rate control and anticoagulation for pAFib. Pharmacy managing INR. Urinary and fecal incontinence noted. Will repeat labs in AM for stability. Chart is reviewed for collateral information. DVT Prophylaxis: Coumadin GI Prophylaxis: Pepcid Discharge Plan - Med Rec/Dispo Referrals/Follow Up: Gabino Poon MD [Physician] - (Dr. Scott Poon on 02/10/17 at 9:40 am to get established. . [facility] [address] [place] [address] [place] [address] Please bring Insurance cards, Photo I.D., and all Medications.) Laney Guillory MD [Family Provider] - (Dr. Ellen Guillory will see patient on rounds at the facility for Hosp. follow-up. .) Additional Instructions: Will need INR on (or around) February 01 with results to go to Dr. Guillory. Needs BMP in 2 weeks to follow potassium New meds: Duoneb breathing treatment Budesonide breathing treatment Flonase metformin warfarin 4mg M,TH 5mg T,W,F,S,S new dose for patient. Prescriptions: New Albuterol/Ipratropium [Duoneb] 3 ml AEROSOL TID #90 neb Fluticasone Nasal [place] [Flonase] 2 spray EA NOSTRIL DAILY bottle Warfarin [Coumadin] 4 mg PO 1700 #30 tab Warfarin [Coumadin] 5 mg PO 1700 #30 tab Budesonide Inhalation [Pulmicort Inhalation] 0.5 mg AEROSOL RTBID vial Metformin [Glucophage] 500 mg PO WS tablet Continue Isosorbide Mononitrate [Isosorbide Mononitrate ER] 0.5 tab PO BID #0 Furosemide 1 tab PO DAILY #0 Famotidine [Pepcid] 20 mg PO DAILY Meclizine [Antivert] 1 tab PO Q6HPRN PRN PRN Reason: Dizziness Polyethylene Glycol 3350 [Miralax] 17 gm PO DAILY Guaifenesin LA [Mucinex LA] 600 mg PO [id number] PRN PRN Reason: Congestion Albuterol Sulfate [Proair Hfa] 2 puff INH Q4H PRN PRN Reason: Shortness Of Air/Wheezing Benzonatate 200 mg PO Q6HPRN PRN PRN Reason: coughing Furosemide [Lasix] 80 mg PO DAILY Mirtazapine 7.5 mg PO HS Trazodone [Desyrel] 50 mg PO HS Primidone [Mysoline] 25 mg PO TID Acetaminophen 650 mg PO Q4HPRN PRN PRN Reason: pain Acetaminophen 650 mg PO TID Metoprolol Succinate (Xl) [Toprol Xl] 50 mg PO DAILY Atorvastatin Calcium 20 mg PO DAILY Fexofenadine HCl 180 mg PO DAILY Miconazole Nitrate [Miconazorb AF] 1 applic TP BID PRN PRN Reason: treatment or pervention of inf Bisacodyl [Dulcolax] 1 tab PO DAILY #0 tab Sertraline HCl 1 tab PO DAILY #0 Losartan Potassium 1 tab PO DAILY #0 Potassium Chloride 20 meq PO QID #0 tab cloNIDine HCl [Clonidine HCl] 1 tab PO TID #0 tab Sotalol HCl [Sotalol] 0.5 tab PO TID #0 tab Melatonin 6 mg PO DAILY #0 Ondansetron Tab [Zofran Po] 4 mg PO Q4HR PRN PRN Reason: Nausea Albuterol Neb (0.083%) [Proventil Neb (0.083%)] 2.5 mg AEROSOL Q2HPRN PRN PRN Reason: Shortness Of Air Trihexyphenidyl [Artane] 0.5 tab PO BID Gabapentin [Neurontin] 200 mg PO DAILY NIFEdipine [Nifedipine ER] 90 mg PO DAILY Ferrous Sulfate 325 mg PO DAILY Discontinued Warfarin Sodium 6 mg PO Q2D #0 tab Warfarin Sodium [Coumadin] 3 mg PO Q2D #0 tab Ondansetron Tab [Zofran Po] 4 mg PO DAILY Discharge Instructions/Outpatient Orders: Final Provider Discharge Instructions Location: Determined By Patient
== END 2017-01-25 14:59 | DRG 56 ==
PROVIDERS: ADMIT Internal Medicine; ATTEND Internal Medicine